=== PATIENT | male | born 1965 | race Caucasian/White ===

== ENCOUNTER 2018-04-30 17:29 | Inpatient (IN) | payer OTHER ==
[~2018-04-30] VITALS: Ht 167.6 cm; Wt 74.4 kg
[~2018-04-30 17:29] MED LIST: TRAZODONE100 MG PO
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
--- NOTE | 2018-04-30 19:21 | RADIOLOGY REPORT ---
EXAMINATION: XR KNEE, LEFT CLINICAL INFORMATION: Pain. COMPARISON: None TECHNIQUE: Four views of the left knee. FINDINGS: Bones are normal. No fracture or joint effusion. Alignment is anatomic. Joint spaces are well maintained. No abnormal soft tissue calcification. Mild prepatellar soft tissue swelling anteriorly IMPRESSION: No acute osseous finding. Mild prepatellar soft tissue swelling.
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
[2018-04-30 19:31] LABS: ABSOLUTE BASOPHIL COUNT 0.1 /CUMM (0.0-0.2); ABSOLUTE EOSINOPHIL COUNT 0.1 /CUMM (0.0-0.7); ABSOLUTE GRANULOCYTE CT 10.2 /CUMM (1.4-6.5); ABSOLUTE LYMPH COUNT 4.2 /CUMM (1.2-3.4); BASOPHIL % 0.5 % (0.0-2.0); EOSINOPHIL % 0.6 % (0-5); HEMATOCRIT 30.2 % (42-52); MEAN CORPUSCULAR HGB 32.8 PG (27.0-31.0); MEAN CORPUSCULAR HGB CONC 33.5 G/DL (33.0-37.0); MEAN CORPUSCULAR VOLUME 97.8 FL (80.0-94.0); MEAN PLATELET VOLUME 8.9 FL (7.4-10.4); PLATELET COUNT 315 /CUMM (130-400); RBC DISTRIBUTION WIDTH 15.5 % (11.5-14.5); RED BLOOD CELL CT 3.09 /CUMM (4.70-6.10); WHITE BLOOD CELL COUNT 15.6 /CUMM (4.8-10.8)
[2018-04-30 19:42] LABS: GRANULOCYTE % 65.2 % (42.2-75.2)
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
[2018-05-02 17:02] VITALS: BP 157/94
[2018-05-02 17:29] VITALS: BP 157/94
[2018-05-02 19:02] VITALS: BP 180/96
[2018-05-02] MEDS ORDERED: NEURONTIN300 M1 PO (21:15)
[2018-05-02] MEDS ORDERED: METOPROLOL TART25 M1 PO (21:17)
[2018-05-02] MEDS ORDERED: HYDROCHLOROTHIA25 M1 PO (21:18)
[2018-05-02] MEDS ORDERED: LISINOPRIL20 M1 PO (21:20)
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
[2018-05-02 23:02] VITALS: BP 153/84
[2018-05-03] VITALS (7 sets, daily range): BP systolic 139–171; BP diastolic 83–96
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
--- NOTE | 2018-05-04 02:47 | CP SOUTH PROGRESS NOTE PSYCH ---
Psych (Inpt) Progress Note Progress Note Vital Signs Date Time Temp Pulse B/P 05/04 0729 98.3 84 149/91 05/04 0613 84 160/92 05/03 2106 84 160/91 05/03 2105 84 161/91 05/03 1942 97.9 91 154/94 05/03 1934 97.9 91 154/94 05/03 1619 83 171/88 05/03 1616 83 171/88 Mental Status Examination The patient was alert and oriented to time, place, and person. He was limping because of significant left knee pain due to a significant fall with hematoma, the patient looked in physical pain on was limping, he also looked very tyson from traveling by bike from [place] up to [place], he was calm and cooperative and friendly, reduced psychomotor activity because of pain, no abnormal behaviors, normal speech, not pressured, not slurred, showed a good range of affect, denied feeling depressed, denied thoughts of suicide today, denied thoughts of violence or homicide towards his father or sister, denied hallucinations, denied feeling paranoid, there were no delusions during the interview, seemed to be coherent, there was no significant thought disorder, patient has partial insight, chronically impaired judgment. Patient seemed to have reasonable attention and concentration and able to process information, there was no evidence of short-term memory impairment during the interview Assessment: 52-year-old single white male was admitted because of vague suicidal statements as well as homicidal statements about his father and sister. Patient has shown significant improvement in his mood/irritability level and seemed to be at better terms with his dad who is expected to visit today Diagnoses: Unspecified depressive disorder Alcohol use disorder, severe Cannabis use disorder, moderate Stimulant use disorder, moderate Adjustment disorder with disturbance of emotions and conduct Treatment Plan: Increase/change Gabapentin to 600 mg TID Increase Metoprolol to 50 mg BID Change trazodone to regular schedule 50 mg QHS Continue oxycodone 10 mg every 4 hours as needed for pain and as well as homicidal statements about his father and sister DSM 5 Diagnosis(es): Unspecified depressive disorder Alcohol use disorder, severe Cannabis use disorder, moderate Stimulant use disorder, moderate Adjustment disorder with disturbance of emotions and conduct Treatment Plan: Inpatient psychiatric care with safety checks every 15 minutes and Continue detoxification protocol Increase oxycodone to 10 mg every 4 hours as needed for pain and Continue other medications unchanged Biopsychosocial assessment by social work, collateral information, and aftercare planning Group therapy and milieu therapy and activity therapy Nursing assessments, vital signs, and patient education and Psychiatrist to evaluate patient's mental status daily and monitor medications daily Continue as needed trazodone for sleep He also seems to be resilient and resourceful Impression/Plan Impression and Plan: 52-year-old single white male was admitted because of vague suicidal statements as well as homicidal statements about his father and sister - Include all active medical diagnosis that require tx DSM 5 Diagnosis(es): Unspecified depressive disorder Alcohol use disorder, severe Cannabis use disorder, moderate Stimulant use disorder, moderate Adjustment disorder with disturbance of emotions and conduct - Initial Tx Plan for Active Psych & Medical Conditions Treatment Plan: Inpatient psychiatric care with safety checks every 15 minutes and Continue detoxification protocol Increase oxycodone to 10 mg every 4 hours as needed for pain and Continue other medications unchanged Biopsychosocial assessment by social work, collateral information, and aftercare planning Group therapy and milieu therapy and activity therapy Nursing assessments, vital signs, and patient education and Psychiatrist to evaluate patient's mental status daily and monitor medications daily Continue as needed trazodone for sleep
[2018-05-04 06:13] VITALS: BP 160/92
[2018-05-04 07:29] VITALS: BP 149/91
[2018-05-04 08:04] VITALS: BP 149/91
[2018-05-04 12:20] VITALS: BP 145/94
[2018-05-04 15:52] VITALS: BP 157/96
--- NOTE | 2018-05-04 16:26 | SOCIAL WORKER PROG NOTE PSYCH ---
Social Work Progress Note Progress Note I met with Gustavo today to review his progress on the DSS W1E application. He made progress on it and went over a some missing information. This application will be mailed and the client was given a copy to follow up on in a couple days. I checked in with the patient to see how he was doing. He reported feeling a little better not coughing or experiencing the rib pain he had before. He still expressed pain in his leg and shoulder. The patient said that others do not believe the pain he reports having is real. He expressed enjoying his freedom and is not really into the correction lifestyle. He was concerned about [employer] insurance being active and how food stamps worked. The client was discussing his mothers passing and felt like something should have been passed onto him but believed that his sister lied. He spoke about when his father dies he will get the house along with other assets. The above information was documented by Sulaiman Dumont WIRING TECHNICIAN research program intern and signed by Katarina Reyes LCSW.
[2018-05-04 20:08] VITALS: BP 170/90
[2018-05-05 04:58] VITALS: BP 140/96
[2018-05-05 07:41] VITALS: BP 148/99
--- NOTE | 2018-05-05 08:20 | CP SOUTH PROGRESS NOTE PSYCH ---
Psych (Inpt) Progress Note Progress Note Treatment team (MENDEZ, RN, OTR/L & Activities Therapist, Psychiatrist) discussed the Pt.'s progress, treatment plan, and aftercare plans. Vital Signs Date Time Temp Pulse B/P 05/05 0741 97.6 80 148/99 05/05 0458 68 140/96 Mental Status Examination The patient was alert and oriented to time, place, and person. He looked in physical pain and was limping, calm and cooperative and friendly, reduced psychomotor activity because of pain, no abnormal behaviors, normal speech, not pressured, not slurred, showed a good range of affect, denied feeling depressed, denied thoughts of suicide today, denied thoughts of violence or homicide towards his father or sister, denied hallucinations, denied feeling paranoid, there were no delusions during the interview, seemed to be coherent, there was no significant thought disorder, seemed to have reasonable attention and concentration and able to process information, no evidence of short-term memory impairment during the interview Assessment: Gustavo is a 52-year-old Single White male was admitted because of vague suicidal statements as well as homicidal statements about his father and sister. Since his admission on 05/02/2018, patient has shown significant improvement in his mood/irritability level and seemed to be at better terms with his dad Diagnoses: Unspecified Depressive Disorder Alcohol Use Disorder, severe Cannabis Use Disorder, moderate Stimulant Use Disorder, moderate Adjustment Disorder with disturbance of emotions and conduct Treatment Plan Update: D/C Percocet Start Oxycodone 15 mg four times daily Increase Gabapentin to 900 mg TID Metoprolol 50 mg BID trazodone 50 mg QHS Increase/change Gabapentin to 600 mg TID Increase Metoprolol to 50 mg BID Change trazodone to regular schedule 50 mg QHS Continue oxycodone 10 mg every 4 hours as needed for pain and
--- NOTE | 2018-05-05 11:49 | SOCIAL WORKER PROG NOTE PSYCH ---
Social Work Progress Note Progress Note Completed [facility] concurrent review. Check [facility] web for next review date.
[2018-05-05 12:04] VITALS: BP 171/91; BP 171/97
[2018-05-05 14:32] VITALS: BP 152/90
--- NOTE | 2018-05-05 15:00 | SOCIAL WORKER PROG NOTE PSYCH ---
Social Work Progress Note Progress Note I Sulaiman Dumont (SNACK STEWARDESS paid intern) met with Gustavo to check in with him about his day. He reported feeling slightly better only mild discomfort in ribs no cough. He still is experiencing pain in his leg, and shoulder. He inquired about if he could get pain medication for those injuries and I let him know to talk with the nurses and psychiatrist. When asked about his mood he responded with " I have enough anxiety for five people." He did mention he let Victoria (medical student) know this when they met so he can possibly get some form of medication for this anxiety although he made it clear he does not want a psychotropic. When asked if he had any trouble sleeping on the unit he reported no problems and that the medications he takes here on the unit help him sleep. He expressed that he had a pleasant visit with his father last night. When asked about having a family meeting with his father Gustavo agreed. I had Gustavo sign a release to contact his father to set up the family meeting and a release for [facility] since that is the after care treatment he is looking to recieve. He mentioned to leave it on the recording that the call is in regard to him because dad screens calls. When asked if he feels sucidal he responded "no I am Confucianism well a bad one but still." He mentioned a positive experience at an all Black taoism with lot of people and how churches have strong wine. When asked about after care treatment he said that he has gotten clean and sober on his own in the past and he can do it again in the future. He mentioned the willpower in past to resist alcohol. He intends to go to [facility] for mental health treatment and services in [place] until at least August. In August he mentioned going to [facility] and seeking out mental health service he has used there before. A family meeting was scheduled with Gustavo's Father for Tuesday 05/08 at 2:30pm.
[2018-05-05 16:01] VITALS: BP 155/88
[2018-05-05 19:56] VITALS: BP 164/92
[2018-05-06 07:45] VITALS: BP 175/93
[2018-05-06 12:26] VITALS: BP 171/98
--- NOTE | 2018-05-06 14:55 | CP SOUTH PROGRESS NOTE PSYCH ---
Psych (Inpt) Progress Note Progress Note Include the following elements, when applicable: Involvement in the active treatment of the patient with behavioral observations of the patient and the patient's response to the treatment. Review of the ongoing treatment process in the context of the treatment plan. Indication of how multi-disciplinary staff members are carrying out the treatment plan. Plans for future interventions and recommendations for revision of the treatment plan. Liaison with other physicians/providers. Progress Note: Chart reviewed. Progress discussed with nursing staff. Interviewed patient this morning. Quite talkative, shared much of his story over past few weeks/months. Reports feeling depressed, denies suicidality, explained difficult relationship with his father. He asks for opiate tx for his knee which was denied. Vitals and labs reviewed. Findings are: persistent hypertension. No new labs. Mental status exam: Very tyson and tattooed man resting supine on hospital bed with left leg elevated. Bruising throughout left thigh. No abn movements. Speech was copious in amount with raspy quality. Mood "down", affect constrict though mildly labile and grandiose, TP was ruminative, content focused on injury and pain, denies SI/HI, reports vague AH of "I see shadows sometimes" cognition grossly intact, i/j fair Assessment and plan: Mood remains down without SI. Continued focus on pain. For persistent htn, will discuss with him tomorrow regarding addition of norvasc as described in hospitalist note. Otherwise, continue current management as per primary team.
[2018-05-06 15:54] VITALS: BP 156/95
[2018-05-06 19:53] VITALS: BP 152/97
--- NOTE | 2018-05-07 00:49 | Event Note ---
Event Note Event Note: I was asked to evaluate this patient's left knee swelling and abrasion. Patient had a recent fall with left knee abrasion and left thigh ecchymosis. He was evaluated on May 02 by hospitalist, and was advised daily dressing and wound consult. Tonight nurse notified that patient's entire leg was swollen and erythematous with diffuse left knee swelling. He has a h/o IV drug abuse. On my evaluation, patient reports reduced ROM of left knee and diffuse swelling. Patient has remained afebrile. Left thigh region has a diffuse ecchymotic patch, left knee has diffuse soft tissue swelling with possible underlying effusion. Diffuse erythema noted to left leg anteriorly with swelling, warmth and tenderness. Peripheral pulses well felt. Vitals stable. 1. Left knee abrasion with superimposed cellulitis, need to rule out DVT. - Stat CBC, BEP, CRP - Left knee Xray shows extensive soft tissue swelling and small knee joint effusion, no fracture. I was going to do a knee tap but since effusion is small, deferred the plan. - Blood cultures x 2, PO keflex initiated - LLE doppler to rule out DVT in AM - Ortho consult in AM - Area of erythema marked - We will continue to follow. Ortho consult pending, f/u blood cultures.
[2018-05-07 01:41] LABS: ABSOLUTE BASOPHIL COUNT 0.3 /CUMM (0.0-0.2); ABSOLUTE EOSINOPHIL COUNT 0.4 /CUMM (0.0-0.7); ABSOLUTE GRANULOCYTE CT 6.9 /CUMM (1.4-6.5); ABSOLUTE MONOCYTE COUNT 1.8 /CUMM (0.10-0.60); BASOPHIL % 1.8 % (0.0-2.0); EOSINOPHIL % 2.5 % (0-5); GRANULOCYTE % 48.1 % (42.2-75.2); MEAN CORPUSCULAR HGB 32.8 PG (27.0-31.0); MEAN CORPUSCULAR HGB CONC 33.5 G/DL (33.0-37.0); MEAN CORPUSCULAR VOLUME 98.1 FL (80.0-94.0); MEAN PLATELET VOLUME 9.3 FL (7.4-10.4); PLATELET COUNT 438 /CUMM (130-400); RBC DISTRIBUTION WIDTH 15.1 % (11.5-14.5); RED BLOOD CELL CT 3.57 /CUMM (4.70-6.10); WHITE BLOOD CELL COUNT 14.3 /CUMM (4.8-10.8)
--- NOTE | 2018-05-07 02:19 | RADIOLOGY REPORT ---
EXAMINATION: LEFT KNEE 3 VIEWS CLINICAL INFORMATION: Left knee pain and swelling. COMPARISON: April 30, 2018. TECHNIQUE: AP, lateral, oblique views of the left knee were obtained. FINDINGS: There are no fractures or dislocations. There is a small knee joint effusion. There is extensive soft tissue swelling about the medial aspect of the knee as well as anterior to the patella and patellar tendon. IMPRESSION: Extensive soft tissue swelling in small knee joint effusion. No demonstrable fracture.
[2018-05-07 07:52] VITALS: BP 140/98
--- NOTE | 2018-05-07 10:54 | CP SOUTH PROGRESS NOTE PSYCH ---
Psych (Inpt) Progress Note Progress Note Include the following elements, when applicable: Involvement in the active treatment of the patient with behavioral observations of the patient and the patient's response to the treatment. Review of the ongoing treatment process in the context of the treatment plan. Indication of how multi-disciplinary staff members are carrying out the treatment plan. Plans for future interventions and recommendations for revision of the treatment plan. Liaison with other physicians/providers. Progress Note: Chart reviewed. Progress discussed with nursing staff. Interviewed patient this morning. Again a bit talkative and gregarious, but clearly in pain from his left knee. His knee has become more painful with tracking redness down his left calf. He was seen by the hospitalist overnight who zuri blood and started on keflex for presumed cellulitis. An xray was obtained and u/s study ordered for today. He continues to report some depressed mood especially with regard to how his injuries will affect his ability to ride a bike. Denies SI/HI however, and denies AVH. Vitals and labs reviewed. Findings are: vitals wnl, afebrile. CBC: +leukocytosis though down since April 30. Hgb 10.1-->11.7. Chem: AG 9. Mental status exam: Very tyson and tattooed man ambulating around unit with limp. Again, brusing is noted on left thigh with tracking redness on left calf. His left foot and leg were warm and pulses were felt. Mood "I'm worried about what I 'm gonna do", affect constricted, mildly labile and expansive, TP was ruminative , content focused on injury and pain, denies SI/HI, reports vague AH of "I see shadows sometimes" cognition grossly intact, i/j fair Assessment and plan: #Knee: appreciate marketing graphics specialist input. Will f/u ordered blood cultures. Nursing to contact ortho for consult this morning. Follow up LLE doppers to r/o DVT. Continue to closely monitor vitals. Appreciate input re: management of pain. #Psych: mood remains reactively down. Continue psychotropics, defer to primary team for adjustment.
[2018-05-07 12:02] VITALS: BP 143/86
--- NOTE | 2018-05-07 12:42 | ULTRASOUND REPORT ---
EXAMINATION: US TRIPLEX LOWER EXTREMITY, LEFT CLINICAL INFORMATION: Left lower extremity pain, discoloration, swelling and inflammatory changes. COMPARISON: None TECHNIQUE: Color-flow triplex imaging with spectral analysis and compression Doppler were performed on the lower extremity. FINDINGS: Respiratory variation, normal compression and augmented flow are noted throughout the lower extremity. The visualized common femoral vein, proximal greater saphenous vein, femoral vein, profunda femoral vein, popliteal vein and midcalf peroneal and posterior tibial venous segments show no evidence of deep venous thrombosis. There is no Bullard's cyst. IMPRESSION: No evidence of deep venous thrombosis involving the lower extremity.
[2018-05-07 15:53] VITALS: BP 154/86
[2018-05-07 19:55] VITALS: BP 152/102
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
[2018-05-08 08:03] VITALS: BP 146/99
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
[2018-05-08 12:16] VITALS: BP 146/81
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
[2018-05-08 15:48] VITALS: BP 145/105; BP 146/87
--- NOTE | 2018-05-08 16:43 | RADIOLOGY REPORT ---
EXAMINATION: XR SHOULDER, RIGHT CLINICAL INFORMATION: Pain on movement limitation. Presumptive diagnosis of right shoulder fracture. COMPARISON: None TECHNIQUE: 5 views of the right shoulder. FINDINGS: There is a comminuted avulsion fracture of the greater tuberosity of the humerus with medial retraction of the bone fragments. There is inferior subluxation of the humeral head but the humeral head still remains located. The acromioclavicular joint is intact with mild nonbursal surface spurring, joint space narrowing and cystic changes seen. Included right ribs are intact and unremarkable. IMPRESSION: Comminuted displaced fracture of the greater tuberosity of the humeral head.
[2018-05-08 19:33] VITALS: BP 146/89
[2018-05-09 07:56] VITALS: BP 150/88
--- NOTE | 2018-05-09 09:00 | SOCIAL WORKER PROG NOTE PSYCH ---
Social Work Progress Note Progress Note Dr. Cristina and I met with Gustavo. Talked about his shoulder fracture and how his knee is doing. His medical issues remain complicated. Not knowing or having a stable place to stay to follow up on his medical issues puts him at risk. We talked about possible short term rehab to help heal. He was open to me starting that process. I explained it can take some time due to him being on the psych unit. Reports waking up early this morning and not being able to go back to sleep. Asked for an increase in Trazadone. Asked how his mood was with all of this going on? He reported being down/ sad. Upset that he can't function normally or ride his bike.
[2018-05-09 12:37] VITALS: BP 144/92
--- NOTE | 2018-05-09 13:59 | CP SOUTH PROGRESS NOTE PSYCH ---
Psych (Inpt) Progress Note Progress Note Treatment team (MENDEZ, RN, OTR/L & Activities Therapist, Psychiatrist) discussed the Pt.'s progress, treatment plan, and aftercare plans. Vital Signs Date Time Temp Pulse Resp B/P 05/09 1237 74 144/92 05/09 0758 17 150/88 05/09 0757 97.9 78 17 150/88 05/09 0756 97.9 78 150/88 05/08 2130 85 146/89 Mental Status Examination The patient was alert and oriented to time, place, and person. He was seen by orthopedics, in physical pain, limping, calm, cooperative, friendly, poor boundaries, talkative, not pressured, not slurred, good range of affect, denied feeling depressed, denied thoughts of suicide wishes his father's but denied thoughts of violence or homicide towards his father or sister, denied hallucinations, denied feeling paranoid, there were no delusions during the interview, tangential and circumstantial but coherent, reasonable attention and concentration and able to process information, no evidence of short-term memory impairment Assessment: Gustavo is a 52-year-old Single White Male was admitted on 05/02/2018 because of vague suicidal statements as well as homicidal statements about his father and sister. Since his admission on 05/02/2018, patient has shown significant improvement in his mood/irritability Diagnoses: Unspecified Depressive Disorder Alcohol Use Disorder, severe Cannabis Use Disorder, moderate Stimulant Use Disorder, moderate Adjustment Disorder with disturbance of emotions and conduct Treatment Plan Update: PT consult, Ortho said no furthr interventions Increase trazodone to 100 mg QHS Duloxetine 30 mg daily Oxycodone 20 mg Q 6Hours Gabapentin 900 mg TID Metoprolol 50 mg BID
--- NOTE | 2018-05-09 14:29 | SOCIAL WORKER PROG NOTE PSYCH ---
Social Work Progress Note Progress Note ANGELA CESAR [id number] 1965 ANGELA CESAR [id number] Pended Authorization # Client Authorization # Type of Request [id number] CONCURRENT Date of Admission/ Start of Services Requested From Submission Date 05/02/2018 05/09/2018 05/09/2018
[2018-05-09 15:46] VITALS: BP 142/90
[2018-05-09 19:49] VITALS: BP 159/93
[2018-05-10 07:33] VITALS: BP 152/93
--- NOTE | 2018-05-10 12:05 | SOCIAL WORKER PROG NOTE PSYCH ---
Social Work Progress Note Progress Note Started the [facility] application this morning. Spoke with Gustavo about how the process takes some time. He is interested in going to a rehab in the [place] area if accepted. He talked about how he is doing medically. Reports pain in his right shoulder. Swelling is going down a bit on his left knee/ leg. He is still wearing a bandage due to oozing. Talked about the negative experience he had with OT staff yesterday. He reported that he is not going to this person's groups anymore, because he felt that she wasn't listening to him and not wanting to spend time with him. He felt disrespected. Encouraged him not to spread negativity on the unit about his feelings and start to have everyone boycotting group. He listened to what was said and seemed to be respectful. He said he tries to go to groups here and does feel they are beneficial.
[2018-05-10 12:37] VITALS: BP 132/82
[2018-05-10 15:45] VITALS: BP 151/97
--- NOTE | 2018-05-10 16:20 | CP SOUTH PROGRESS NOTE PSYCH ---
Psych (Inpt) Progress Note Progress Note Treatment team (MENDEZ, RN, OTR/L & Activities Therapist, Psychiatrist) discussed the Pt.'s progress, treatment plan, and aftercare plans. Vital Signs Date Time Temp Pulse Resp B/P B/P Pulse O2 FiO2 05/10 1545 77 151/97 05/10 1237 74 132/82 05/10 0744 97.7 78 17 152/93 05/10 0744 97.7 78 17 152/93 Mental Status Examination The patient was alert and oriented to time, place, and person. He was talkative with bright affect. He seemed to be in physical pain/limping calm, cooperative, friendly, denied feeling depressed, denied thoughts of suicide denied thoughts of violence or homicide towards his father, sister, or anyone else denied hallucinations, denied feeling paranoid, there were no delusions during the interview, tangential and circumstantial but coherent, reasonable attention and concentration and able to process information, no evidence of short-term memory impairment Assessment: Gustavo Soto is a 52-year-old Single White Male was admitted on 05/02/2018 because of vague suicidal statements as well as homicidal statements about his father and sister. Since his admission on 05/02/2018, patient has shown significant improvement in his mood/irritability He has a healing fracture of Rt. Humeral Head and Left Knee Hematoma Diagnoses: Unspecified Depressive Disorder Alcohol Use Disorder, severe Cannabis Use Disorder, moderate Stimulant Use Disorder, moderate Adjustment Disorder with disturbance of emotions and conduct Treatment Plan Update: Continue trazodone to 100 mg QHS Duloxetine 30 mg daily Oxycodone 20 mg Q 6Hours Gabapentin 900 mg TID Metoprolol 50 mg BID DICTATED BY: Ibeth MCCOY,Manjit
[2018-05-10 20:16] VITALS: BP 161/96
[2018-05-11 08:02] VITALS: BP 158/89
--- NOTE | 2018-05-11 08:22 | CP SOUTH PROGRESS NOTE PSYCH ---
Psych (Inpt) Progress Note Progress Note Treatment team (MENDEZ, RN, OTR/L & Activities Therapist, Psychiatrist) discussed the Pt.'s progress, treatment plan, and aftercare plans. Mental Status Examination The patient was alert and oriented to time, place, and person. He was talkative with bright affect. He seemed to be in physical pain/limping calm, cooperative, friendly, denied feeling depressed, denied thoughts of suicide denied thoughts of violence or homicide towards his father, sister, or anyone else denied hallucinations, denied feeling paranoid, there were no delusions during the interview, tangential and circumstantial but coherent, reasonable attention and concentration and able to process information, no evidence of short-term memory impairment Assessment: Gustavo Soto is a 52-year-old Single White Male was admitted on 05/02/2018 because of vague suicidal statements as well as homicidal statements about his father and sister. Since his admission on 05/02/2018, patient has shown significant improvement in his mood/irritability He has a healing fracture of Rt. Humeral Head and Left Knee Hematoma Diagnoses: Unspecified Depressive Disorder Alcohol Use Disorder, severe Cannabis Use Disorder, moderate Stimulant Use Disorder, moderate Adjustment Disorder with disturbance of emotions and conduct Treatment Plan Update: Increase Duloxetine to 30 mg daily Continue trazodone to 100 mg QHS Oxycodone 20 mg Q 6Hours Gabapentin 900 mg TID Metoprolol 50 mg BID Gabapentin 900 mg TID Metoprolol 50 mg BID
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
--- NOTE | 2018-05-11 10:57 | SOCIAL WORKER PROG NOTE PSYCH ---
Social Work Progress Note Progress Note [facility] application was submitted online. MAR and doctor's attestation was faxed to [facility].
[2018-05-11 12:18] VITALS: BP 147/80
[2018-05-11 16:27] VITALS: BP 166/98
[2018-05-11 20:24] VITALS: BP 150/82
[2018-05-12 07:33] VITALS: BP 166/104
--- NOTE | 2018-05-12 10:56 | CP SOUTH PROGRESS NOTE PSYCH ---
Psych (Inpt) Progress Note Progress Note Treatment team (MENDEZ, RN, OTR/L & Activities Therapist, Psychiatrist) discussed the Pt.'s progress, treatment plan, and aftercare plans. Vital Signs: Date Time Temp Pulse Resp B/P 05/12 0852 97.0 78 17 166/104 05/12 0851 97.0 78 17 166/104 Mental Status Examination: The patient was alert and oriented to time, place, and person. He was talkative with bright affect. He seemed to be in physical pain/limping calm, cooperative, friendly, denied feeling depressed, denied thoughts of suicide denied thoughts of violence or homicide towards his father, sister, or anyone else denied hallucinations, denied feeling paranoid, there were no delusions during the interview, tangential and circumstantial but coherent, reasonable attention and concentration and able to process information, no evidence of short-term memory impairment Assessment: Gustavo Soto is a 52-year-old Single White Male was admitted on 05/02/2018 because of vague suicidal statements as well as homicidal statements about his father and sister. Since his admission on 05/02/2018, patient has shown significant improvement in his mood/irritability He has a healing fracture of Rt. Humeral Head and Left Knee Hematoma Diagnoses: Unspecified Depressive Disorder Alcohol Use Disorder, severe Cannabis Use Disorder, moderate Stimulant Use Disorder, moderate Adjustment Disorder with disturbance of emotions and conduct Treatment Plan Update: Continue Duloxetine 30 mg daily Continue trazodone to 100 mg QHS Oxycodone 20 mg Q 6Hours Gabapentin 900 mg TID Metoprolol 50 mg BID Metoprolol 50 mg BID
[2018-05-12 12:14] VITALS: BP 158/91
--- NOTE | 2018-05-12 13:38 | SOCIAL WORKER PROG NOTE PSYCH ---
Social Work Progress Note Progress Note I Sulaiman Dumont ([facility] [place] student met with Gustavo to see how he was doing today. He informed me that his visit with his father went fine last night but his dad did get angry about the generator at the house. Gustavo expressed that he wants to go to a nursing facility in the [place] so that his dad can visit him there. When asked about his feelings around his plan when leaving the hospital he expressed physical therapy would be helpful and would be happy to receive it from nursing facility. He expressed that when his time is done at the nursing facility he has no problem going back to being homeless and living on the streets. He knows people at the police stations and has no problem going there if he needed to. He still reports having a good amount of anxiety but not as depressed today. He also described how he eventually will plan to work for his friend [employer]. He mentioned wanting to also connect with Emily a friend he had since eight grade and dated in the past. He reports some shoulder pain. He told me that he did not have such a nice experience last night a AA meeting because he felt that the copyholder intentional did not let him speak and avoided giving him the number. This frustrated Gustavo and he is looking into other AA meeting but did not like the copyholder. He talked about paying his fine to [place] over six months. The above information was written by Sulaiman Dumont ([facility] [place] real estate internship) and signed by Katarina Reyes LCSW
[2018-05-12 15:43] VITALS: BP 162/94
--- NOTE | 2018-05-12 16:00 | SOCIAL WORKER PROG NOTE PSYCH ---
Social Work Progress Note Progress Note Additional clinical documentation was faxed to [facility] this morning.
[2018-05-12 19:54] VITALS: BP 174/110
[2018-05-12 23:49] VITALS: BP 148/97
[2018-05-13 07:39] VITALS: BP 126/78
--- NOTE | 2018-05-13 09:04 | CP SOUTH PROGRESS NOTE PSYCH ---
Psych (Inpt) Progress Note Progress Note Treatment team (MENDEZ, RN, OTR/L & Activities Therapist, Psychiatrist) discussed the Pt.'s progress, treatment plan, and aftercare plans. Vital Signs: Date Time Temp Pulse Resp B/P B/P 05/13 0844 69 126/78 05/13 0844 69 126/78 05/13 0739 97.7 69 126/78 05/12 2349 77 148/97 05/12 2031 84 174/110 Mental Status Examination: The patient was alert and oriented to time, place, and person. He was talkative with bright affect. cooperative, friendly, denied feeling depressed, denied thoughts of suicide, denied thoughts of violence or homicide towards his father, sister, or anyone else Pt. denied hallucinations, denied feeling paranoid, and there were no delusions during the interview. coherent (with the occasional tangent or overdetailed/circumstantial thoughts) no evidence of short-term memory impairment Assessment: Gustavo Soto is a 52-year-old Single White Male who was admitted to the inpatient psychiatric unit at [facility] on 05/02/2018 because of vague suicidal statements as well as homicidal statements about his father and sister. Since his admission on 05/02/2018, Gustavo has shown significant improvement in his mood. He has a healing fracture of Rt. Humeral Head and Left Knee Hematoma Diagnoses (Updated): Unspecified Depressive Disorder Alcohol Use Disorder, Severe Cannabis Use Disorder, Moderate Stimulant Use Disorder, moderate Treatment Plan Update: Increase Duloxetine to 60 mg QAM Continue trazodone 100 mg QHS Oxycodone 20 mg Q 6Hours Gabapentin 900 mg TID Metoprolol 50 mg BID Stimulant Use Disorder, moderate Adjustment Disorder with disturbance of emotions and conduct Treatment Plan Update: Continue Duloxetine 30 mg daily Continue trazodone to 100 mg QHS Oxycodone 20 mg Q 6Hours Gabapentin 900 mg TID Metoprolol 50 mg BID
[2018-05-13 12:17] VITALS: BP 158/96
[2018-05-13 15:45] VITALS: BP 134/96
[2018-05-13 19:45] VITALS: BP 164/98
[2018-05-14 07:39] VITALS: BP 146/92
[2018-05-14 11:55] VITALS: BP 150/85
--- NOTE | 2018-05-14 12:08 | CP SOUTH PROGRESS NOTE PSYCH ---
Psych (Inpt) Progress Note Progress Note Mental Status Examination: The patient was alert and oriented to time, place, and person. He was talkative but coherent. He denied feeling depressed and he showed bright affect. He was cooperative, friendly, denied thoughts of suicide, denied thoughts of violence or homicide towards his father, sister, or anyone else Pt. denied hallucinations, denied feeling paranoid, and there were no delusions during the interview. coherent (with the occasional tangent or overdetailed/circumstantial thoughts) no evidence of short-term memory impairment Assessment: Gustavo Soto is a 52-year-old Single White Male who was admitted to the inpatient psychiatric unit at [facility] on 05/02/2018 because of vague suicidal statements as well as homicidal statements about his father and sister. Since his admission on 05/02/2018, Gustavo has shown significant improvement in his mood. He has a healing fracture of Rt. Humeral Head and Hematoma above Left Knee Today it seems that the hematoma has drained spontaneously and is leaking from a break in the skin just over the patella Diagnoses (Updated): Unspecified Depressive Disorder Alcohol Use Disorder, Severe Cannabis Use Disorder, Moderate Stimulant Use Disorder, moderate Treatment Plan Update: Duloxetine 60 mg QAM Continue trazodone 100 mg QHS Oxycodone 20 mg Q 6Hours Gabapentin 900 mg TID Metoprolol 50 mg BID
[2018-05-14 15:23] VITALS: BP 160/102
[2018-05-14 15:55] VITALS: BP 160/96
[2018-05-14 19:43] VITALS: BP 162/102
[2018-05-15 07:40] VITALS: BP 162/98
[2018-05-15 08:10] LABS: ABSOLUTE BASOPHIL COUNT 0.1 /CUMM (0.0-0.2); ABSOLUTE EOSINOPHIL COUNT 0.8 /CUMM (0.0-0.7); ABSOLUTE GRANULOCYTE CT 7.2 /CUMM (1.4-6.5); BASOPHIL % 0.7 % (0.0-2.0); EOSINOPHIL % 4.8 % (0-5); GRANULOCYTE % 42.3 % (42.2-75.2); HEMATOCRIT 39.6 % (42-52); MEAN CORPUSCULAR HGB 32.1 PG (27.0-31.0); MEAN CORPUSCULAR HGB CONC 32.9 G/DL (33.0-37.0); MEAN CORPUSCULAR VOLUME 97.4 FL (80.0-94.0); MEAN PLATELET VOLUME 9.2 FL (7.4-10.4); PLATELET COUNT 541 /CUMM (130-400); RBC DISTRIBUTION WIDTH 14.2 % (11.5-14.5); RED BLOOD CELL CT 4.07 /CUMM (4.70-6.10); WHITE BLOOD CELL COUNT 17.1 /CUMM (4.8-10.8)
--- NOTE | 2018-05-15 09:09 | CP SOUTH PROGRESS NOTE PSYCH ---
Psych (Inpt) Progress Note Progress Note Mental Status Examination: alert and oriented to time, place, and person. He was talkative but coherent. He denied feeling depressed and he showed bright affect, cooperative, friendly, denied thoughts of suicide, denied thoughts of violence or homicide towards his father, sister, or anyone else, denied hallucinations, denied feeling paranoid, and there were no delusions during the interview, coherent (with the occasional tangent or overdetailed/circumstantial thoughts), no evidence of short-term memory impairment Assessment: Gustavo Soto is a 52-year-old Single White Male who was admitted to the inpatient psychiatric unit at [facility] on 05/02/2018 because of vague suicidal statements as well as homicidal statements about his father and sister. Since his admission on 05/02/2018, Gustavo has shown significant improvement in his mood. He has a healing fracture of Rt. Humeral Head and Hematoma above Left Knee Today it seems that the hematoma has drained spontaneously and is leaking from a break in the skin just over the patella Diagnoses (Updated): Unspecified Depressive Disorder Alcohol Use Disorder, Severe Cannabis Use Disorder, Moderate Stimulant Use Disorder, moderate Treatment Plan Update: Duloxetine 60 mg QAM Continue trazodone 100 mg QHS reduce Oxycodone to 15 mg Q 6Hours Gabapentin 900 mg TID Metoprolol 50 mg BID
[2018-05-15 12:16] VITALS: BP 160/98
--- NOTE | 2018-05-15 12:42 | SOCIAL WORKER PROG NOTE PSYCH ---
Social Work Progress Note Progress Note Gustavo reported having a good weekend. Spoke with Dad on Tuesday. Conversation was okay. Gustavo reported having some irritability towards another peer on the unit, but was able to keep things in control. He is walking on the unit without a walker today. Reported that he has an orthopedic consult today and the library specialist is supposed to see him. Reports sleeping okay, but gets up 2-3x's a night to urinate. He reports this is pretty normal for him. Denies cravings to drink alcohol. I mentioned possibly trying some medication to assist with any cravings, but he didn't seem to feel that was necessary. Has a talkative personality. Enjoys spending time talking with people. Faxed [facility] a letter from Dr. Cristina speaking to Gustavo's level of risk at this point.
--- NOTE | 2018-05-15 15:12 | SOCIAL WORKER PROG NOTE PSYCH ---
Social Work Progress Note Progress Note The services requested require additional review. You will be contacted regarding the status of this request if further information is needed. An authorization decision will be made within the required timeframes and details of that decision may be found under the member's authorization history. Member Name Member ID Member Subscriber Name Subscriber ID ANGELA CESAR [id number] ANGELA SEVILLAANO [id number] Pended Authorization # Client Authorization # Type of Request [id number] CONCURRENT Date of Admission/ Start of Services Requested From Submission Date 05/02/2018 05/15/2018 05/15/2018 Level of Service Type of Service Level of Care Type of Care INPATIENT/HLOC [facility] Reason Code P76 Provider Name & Address Provider ID Provider Alternate ID NPI # for Authorization MAKAYLA PETERSON [id number] [address] [place] [id number]
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
[2018-05-15 16:07] VITALS: BP 135/90
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
[2018-05-15 19:45] VITALS: BP 180/110
[2018-05-15 21:54] VITALS: BP 164/92
--- NOTE | 2018-05-16 07:29 | CP SOUTH PROGRESS NOTE PSYCH ---
Psych (Inpt) Progress Note Progress Note Laboratory Tests Laboratory Tests 05/16 05/15 CBC w Diff NO MAN DIFF REQ WBC (4.8 - 10.8 /CUMM) 14.8 H RBC (4.70 - 6.10 /CUMM) 4.01 L Hgb (14.0 - 18.0 G/DL) 12.7 L Hct (42 - 52 %) 38.8 L MCV (80.0 - 94.0 FL) 96.8 H MCH (27.0 - 31.0 PG) 31.6 H MCHC (33.0 - 37.0 G/DL) 32.7 L RDW (11.5 - 14.5 %) 14.5 Plt Count (130 - 400 /CUMM) 502 H MPV (7.4 - 10.4 FL) 8.9 Gran % (42.2 - 75.2 %) 44.7 Lymphocytes % (20.5 - 51.1 %) 38.1 Monocytes % (1.7 - 9.3 %) 12.1 H Eosinophils % (0 - 5 %) 4.6 Basophils % (0.0 - 2.0 %) 0.5 Absolute Granulocytes (1.4 - 6.5 /CUMM) 6.6 H Absolute Lymphocytes (1.2 - 3.4 /CUMM) 5.6 H Absolute Monocytes (0.10 - 0.60 /CUMM) 1.8 H Absolute Eosinophils (0.0 - 0.7 /CUMM) 0.7 Absolute Basophils (0.0 - 0.2 /CUMM) 0.1 Vital Signs Date Time Temp Pulse Resp B/P 05/15 2154 78 164/92 05/15 1950 98.5 80 17 180/110 05/15 1945 98.5 80 180/110 05/15 1607 77 135/90 05/15 1216 68 160/98 05/15 0750 97.6 71 17 162/98 05/15 0749 97.6 71 17 Mental Status Examination: alert and oriented to time + place + person, talkative but coherent, denied feeling depressed and he showed bright affect, cooperative, friendly, denied thoughts of suicide, denied thoughts of violence or homicide towards his father, sister, or anyone else, denied hallucinations, denied feeling paranoid, and there were no delusions during the interview, an occasional tangent or overdetailed/circumstantial thoughts, no evidence of short-term memory impairment Assessment: Gustavo Soto is a 52-year-old Single White Male who was admitted to the Inpatient psychiatric unit at [facility] on 05/02/2018 because of vague suicidal statements as well as wishing on his father and sister. Since his admission on 05/02/2018, Gustavo has shown significant improvement in his mood and has made up with his father. He no longer wishes his father's He has a healing fracture of Rt. Humeral Head and a significant hematoma above Left Knee which has been draining since Tuesday evening 05/12/2018 and showing gradual resolusion Diagnoses (Updated 05/16/2018): Unspecified Depressive Disorder Alcohol Use Disorder, Severe Cannabis Use Disorder, Moderate Stimulant Use Disorder, Moderate Healing fracture of Rt. Humeral head Left knee hematoma and hemarthrosis Treatment Plan Update: Duloxetine 60 mg QAM Continue trazodone 100 mg QHS continue Oxycodone 15 mg Q 6Hours Gabapentin 900 mg TID Metoprolol 50 mg BID
[2018-05-16 07:45] LABS: ABSOLUTE BASOPHIL COUNT 0.1 /CUMM (0.0-0.2); ABSOLUTE EOSINOPHIL COUNT 0.7 /CUMM (0.0-0.7); ABSOLUTE GRANULOCYTE CT 6.6 /CUMM (1.4-6.5); ABSOLUTE LYMPH COUNT 5.6 /CUMM (1.2-3.4); ABSOLUTE MONOCYTE COUNT 1.8 /CUMM (0.10-0.60); BASOPHIL % 0.5 % (0.0-2.0); EOSINOPHIL % 4.6 % (0-5); GRANULOCYTE % 44.7 % (42.2-75.2); HEMATOCRIT 38.8 % (42-52); MEAN CORPUSCULAR HGB 31.6 PG (27.0-31.0); MEAN CORPUSCULAR HGB CONC 32.7 G/DL (33.0-37.0); MEAN CORPUSCULAR VOLUME 96.8 FL (80.0-94.0); MEAN PLATELET VOLUME 8.9 FL (7.4-10.4); PLATELET COUNT 502 /CUMM (130-400); RBC DISTRIBUTION WIDTH 14.5 % (11.5-14.5); RED BLOOD CELL CT 4.01 /CUMM (4.70-6.10); WHITE BLOOD CELL COUNT 14.8 /CUMM (4.8-10.8)
[2018-05-16 08:38] VITALS: BP 156/97
[2018-05-16 12:00] VITALS: BP 148/94
--- NOTE | 2018-05-16 12:21 | PN- Att Addend ---
Attending Addendum Attending Brief Note S: The patient is s/p drainage of left knee hematoma (pre-patellar) by ortho PA yesterday. Had copious gelatinous material drained (no purulence as per pa note) . O: VS: Vital Signs Date Time Temp Pulse Resp B/P B/P Pulse O2 O2 Flow FiO2 Mean Ox Delivery Rate 05/16 2124 162/98 05/16 1955 96.8 73 170/110 05/16 1539 63 157/95 05/16 1200 61 148/94 05/16 0852 72 156/97 05/16 0838 98.3 72 156/97 05/15 2154 78 164/92 Ext: left knee dressing with some sanguinous material. There is pre-patellar open wound. Culture done of sanguinous drainage. FROM of knee at present. Labs: Laboratory Tests 05/16/18 0644: CBC w Diff NO MAN DIFF REQ, RBC 4.01 L, MCV 96.8 H, MCH 31.6 H, MCHC 32.7 L, RDW 14.5, MPV 8.9, Gran % 44.7, Lymphocytes % 38.1, Monocytes % 12.1 H, Eosinophils % 4.6, Basophils % 0.5, Absolute Granulocytes 6.6 H, Absolute Lymphocytes 5.6 H, Absolute Monocytes 1.8 H, Absolute Eosinophils 0.7, Absolute Basophils 0.1 05/15/18 1600: Fluid WBC Cancelled, Fld Total RBCs Counted Cancelled 05/15/18 1000: Fluid Glucose Cancelled 05/15/18 0545: CBC w Diff NO MAN DIFF REQ, RBC 4.07 L, MCV 97.4 H, MCH 32.1 H, MCHC 32.9 L, RDW 14.2, MPV 9.2, Gran % 42.3, Lymphocytes % 40.7, Monocytes % 11.5 H, Eosinophils % 4.8, Basophils % 0.7, Absolute Granulocytes 7.2 H, Absolute Lymphocytes 7.0 H, Absolute Monocytes 2.0 H, Absolute Eosinophils 0.8, Absolute Basophils 0.1 Impression/Plan: #Left Knee Hematoma- drained by PA as above. No obvious infection. Culture done. WBC decreased. Plan: Patient had been placed on Augmentin for several days. Await wound care nursing consult regarding dressing. #HTN- BP noted to be elevated on chart review. Dose of Metoprolol had been increased. Plan: Continue Metoprolol/HCTZ - will increase Lisinopril to 40 mg daily in morning.
[2018-05-16 15:39] VITALS: BP 157/95
--- NOTE | 2018-05-16 15:40 | SOCIAL WORKER PROG NOTE PSYCH ---
Social Work Progress Note Progress Note Spoke with Angela at [facility]. She said that the case has been assigned to a Katty Lewis. She should be coming out to see Gustavo in the next couple of days. She is supposed to turn in her documentation by 05/18 at noon. At that point [facility] has until 05/22 to approve. Informed Gustavo of this information. He is hoping if approved to go to a facility in the [place]. Preferrably [facility] in [place]. I told him that I was most likely going to cancel his care intake due to him remaining inpatient. The intake was supposed to be for this Tuesday. Mood was pleasant. Smiling. Social with peers. Attending groups. Expecting a visit tonight with his long time friend Alon. He has been following up on his [facility] SNAP application. He said that he has further documentation that he will need to provide to them in order for them to give him benefits. He said that he needs to show that his [place] benefits have been terminated.
[2018-05-16 19:55] VITALS: BP 170/110
[2018-05-16 21:24] VITALS: BP 162/98
[2018-05-17] VITALS (7 sets, daily range): BP systolic 150–184; BP diastolic 89–102
--- NOTE | 2018-05-17 09:03 | SOCIAL WORKER PROG NOTE PSYCH ---
Social Work Progress Note Progress Note Level 1 has been approved, waiting for on-site Level II review/approval or not. - outcome TBD. TC to Angela Alvarez , left a voicemail to confirm note in [employer] website. She returned my call and stated Katty Martinez will come out tonight 05/17 between 6-6:30pm (notified nursing) to do a Level II with Gustavo. Then the outcome of the evaluation (if approved or not) will be in [employer] Website (see access on Katarina's desk -ID/password - CHECK STATUS 05/18) Outcome should be there no later than Mon. 05/22, per Angela/Antonio. Met with Gustavo, he was pleasant and cooperative. He made it clear he wants to be in the [place] area for a SNF. Explained to Gustavo that we need to widen our bed search - and know psychiatric friendly SNF;s. He agreed and signed GONZALO's for the [facility] SN[facility]'s: Need to continue to FAX clinical then contact Admissions. Inform them Level II outcome is in process, PT has been approved for Level I. [facility] fX [phone], [phone] [place] FX# ?? PH#[phone] [facility] FX [phone], PH#[phone] [facility] FX [phone] [facility] [phone], PH#[phone] [facility] FX#[phone], PH#[phone] He denied SI/HI, no AH/VH. He stated he wants to be able to ride his bike around the [place] area. He was talkative, and interested in where the nursing homes were located. He is very appreciative of help. He was visible in the milleu, social with peers and staff and attended groups. His appetite is good, sleep good. He spoke abouit his Father - how he visits him here on [facility] but won't let him stay with him, or give him money. Discussed staying sober and clean off drugs. Gustavo stated he wants to stay sober.
--- NOTE | 2018-05-17 12:29 | CP SOUTH PROGRESS NOTE PSYCH ---
Psych (Inpt) Progress Note Progress Note Mental Status Examination: Gustavo was alert and oriented to time + place + person, talkative but coherent, denied feeling depressed and he showed bright affect, cooperative, friendly, denied thoughts of suicide, denied thoughts of violence or homicide towards his father, sister, or anyone else, denied hallucinations, denied feeling paranoid, and there were no delusions during the interview, no evidence of short-term memory impairment Assessment: Gustavo Soto is a 52-year-old Single White Male who was admitted to the Inpatient psychiatric unit at [facility] on 05/02/2018 because of vague suicidal statements as well as wishing on his father and sister. Since his admission on 05/02/2018, Gustavo has shown significant improvement in his mood and has made up with his father. He no longer wishes his father's He has a healing fracture of Rt. Humeral Head and a significant hematoma above Left Knee which has been draining since Tuesday evening 05/12/2018 and showing gradual resolusion Diagnoses (Updated 05/16/2018): Unspecified Depressive Disorder Alcohol Use Disorder, Severe Cannabis Use Disorder, Moderate Stimulant Use Disorder, Moderate Healing fracture of Rt. Humeral head Left knee hematoma and hemarthrosis Treatment Plan Update: Increase metoprolol to 100 mg twice daily Continue other medications unchanged Duloxetine 60 mg QAM Continue trazodone 100 mg QHS continue Oxycodone 15 mg Q 6Hours Gabapentin 900 mg TID
--- NOTE | 2018-05-17 20:45 | SOCIAL WORKER PROG NOTE PSYCH ---
Social Work Progress Note Progress Note Faxed clinical to [facility]. Waiting on Fax confirmation.
[2018-05-18] VITALS (7 sets, daily range): BP systolic 141–184; BP diastolic 84–104
--- NOTE | 2018-05-18 10:34 | SOCIAL WORKER PROG NOTE PSYCH ---
Social Work Progress Note Progress Note ANGELA CESAR [id number] 1965 ANGELA CESAR [id number] Pended Authorization # Client Authorization # Type of Request [id number] CONCURRENT Date of Admission/ Start of Services Requested From Submission Date 05/02/2018 05/18/2018 05/18/2018 Level of Service Type of Service Level of Care Type of Care INPATIENT/OC MENTAL HEALTH INPATIENT INPATIENT [facility]OSP[facility] - INPATIENT HOSPITAL
--- NOTE | 2018-05-18 10:51 | SOCIAL WORKER PROG NOTE PSYCH ---
Social Work Progress Note Progress Note I Sulaiman Dumont met with Gustavo and informed him that we would hear back from [facility] by May 22 the latest which told him as well. He reports that the meeting went great with [facility] and he was just asked several simple questions. He also stated he had a good thirty minute visit with Dad. He reports being in good mood with some shoulder pain. He mentioned not being able to shower due to knee bandage without a bag on it. Explored ways this pain has had a negative impact on his independence, and how he needs to comply with recovery so he get back to functioning. No word on Level II acceptance yet
--- NOTE | 2018-05-18 15:38 | CP SOUTH PROGRESS NOTE PSYCH ---
Psych (Inpt) Progress Note Progress Note Vital Signs Date Time Temp Pulse Resp B/P 05/18 1154 63 141/84 05/18 0832 97.8 64 17 143/90 05/18 0740 97.8 64 143/90 05/18 0705 92 178/100 05/18 0639 97.9 92 178/100 05/17 2202 68 150/89 05/17 2003 77 184/102 Mental Status Examination: Gustavo continues to have elevated blood pressure on occasion. He was alert and oriented to time + place + person talkative but coherent, denied feeling depressed and he showed bright affect, cooperative, friendly, denied thoughts of suicide, denied thoughts of violence or homicide towards his father, sister, or anyone else, denied hallucinations, denied feeling paranoid, and there were no delusions during the interview Assessment: Gustavo Soto is a 52-year-old Single White Male who was admitted to the Inpatient psychiatric unit at [facility] on 05/02/2018 because of vague suicidal statements as well as wishing on his father and sister. Since his admission on 05/02/2018, Gustavo has shown significant improvement in his mood and has made up with his father. He no longer wishes his father's He has a healing fracture of Rt. Humeral Head and a significant hematoma above Left Knee which has been draining since Tuesday evening 05/12/2018 and showing gradual resolusion Diagnoses (Updated 05/16/2018): Unspecified Depressive Disorder Alcohol Use Disorder, Severe Cannabis Use Disorder, Moderate Stimulant Use Disorder, Moderate Healing fracture of Rt. Humeral head Left knee hematoma and hemarthrosis Treatment Plan Update: Increase lisinopril to 60 mg daily Continue other medications unchanged Gabapentin 900 mg TID
[2018-05-19 07:52] VITALS: BP 158/85
--- NOTE | 2018-05-19 10:25 | SOCIAL WORKER PROG NOTE PSYCH ---
Social Work Progress Note Progress Note The following was written by Sulaiman Dumont, LUBRICATING ENGINE[employer] student: I Sulaiman Dumont met with Gustavo this morning to check in with him. He reported being tired, as he appeared, due to waking up at 430am to use the bathroom and not being able to go back to sleep. When asked if any thoughts were keeping him up he said no. He visited with his dad last night who brought him mail that had approval for SNAP and [employer]. The patient said he called for new [employer] card. He reports he is happy with his discharge plan to go to a nursing facility. He reports being in good mood about has general anxiety about life. Gustavo presented as alert and engaging in this conversation.
[2018-05-19 12:02] VITALS: BP 120/98
--- NOTE | 2018-05-19 12:33 | CP SOUTH PROGRESS NOTE PSYCH ---
Psych (Inpt) Progress Note Progress Note Vital Signs Date Time Temp Pulse Resp B/P B/P Pulse O2 FiO2 05/19 1202 64 120/98 05/19 0930 97.5 66 17 158/85 05/19 0930 97.5 66 17 158/85 05/19 0752 97.5 66 158/85 05/186 158/88 Mental Status Examination: Gustavo was alert and oriented to time + place + person He is talkative but coherent, denied feeling depressed and he showed bright affect, cooperative, friendly, denied thoughts of suicide, denied thoughts of violence or homicide towards his father, sister, or anyone else, denied hallucinations, denied feeling paranoid, and there were no delusions during the interview Assessment: Gustavo Soto is a 52-year-old Single White Male who was admitted to the Inpatient psychiatric unit at [facility] on 05/02/2018 because of vague suicidal statements as well as wishing on his father and sister. Since his admission on 05/02/2018, Gustavo has shown significant improvement in his mood and has made up with his father. He no longer wishes his father's . He has a healing fracture of Rt. Humeral Head and a significant hematoma above Left Knee which has been draining since Tuesday evening 05/12/2018 and showing gradual resolusion Diagnoses (Updated 05/16/2018): Unspecified Depressive Disorder Alcohol Use Disorder, Severe Cannabis Use Disorder, Moderate Stimulant Use Disorder, Moderate Healing fracture of Rt. Humeral head Left knee hematoma and hemarthrosis Treatment Plan Update: Because the patient starting to experience loose stools, I discontinued the antibiotics and put him on probiotics. Increase trazodone to 150 mg because he reported that he was having difficulty sleeping last night as well. Continue other medications unchanged Continue other medications unchanged
[2018-05-19 15:46] VITALS: BP 168/98
--- NOTE | 2018-05-19 16:52 | SOCIAL WORKER PROG NOTE PSYCH ---
Social Work Progress Note Progress Note Determination Status: PENDED The services requested require additional review. You will be contacted regarding the status of this request if further information is needed. An authorization decision will be made within the required timeframes and details of that decision may be found under the member's authorization history. Member Name Member ID Member Subscriber Name Subscriber ID ANGELA CESAR [id number] 1965 ANGELA CESAR [id number] Pended Authorization # Client Authorization # Type of Request [id number] CONCURRENT Date of Admission/ Start of Services Requested From Submission Date 05/02/2018 05/19/2018 05/19/2018 Level of Service Type of Service Level of Care Type of Care INPATIENT/[facility] MENTAL HEALTH INPATIENT INPATIENT HOSP[facility] - INPATIENT HOSPITAL Reason Code P76 Provider Name & Address Provider ID Provider Alternate ID NPI # for Authorization [facility] [address] [place] [id number] Message P76 Attached Documents There are no documents attached with this Authorization Request Document Title Document Description Authorization Printing & Downloading Options: (For the best print results, please print in 'Landscape' format) Print the Results page (this page) Print the entire Authorization Request Download the entire Authorization Request Return to the [employer] homepage
[2018-05-19 19:32] VITALS: BP 170/112
[2018-05-20 07:59] VITALS: BP 150/97
[2018-05-20 12:35] VITALS: BP 154/93
[2018-05-20 15:56] VITALS: BP 152/91
[2018-05-20 19:35] VITALS: BP 152/94
--- NOTE | 2018-05-20 20:34 | CP SOUTH PROGRESS NOTE PSYCH ---
Psych (Inpt) Progress Note Progress Note Chief Complaint Discussed overnight events with RN and staff. As per RN report, the patient was briefly up during nighttime for nocturia, but slept most of the night. No PRNs/ restrains required in the last 24hrs. I saw the patient this morning with the treatment team. He reported feeling better although he continues to be talkative and irritable at times. However, he denies being depressed nor elated. He denies audiovisual hallucinations. He denies suicidal/homicidal thoughts/intent/plans at present. He is visible in the unit interacting with peers, no safety concerns at present. He has adequate appetite and fair sleep after the increase in Trazodone to 150mg. He is compliant to medications, no side effects reported and none in evidence. Medically, afebrile, ABX was discontinued due to loose stool which is resolving. Wound dressing per medical recs. Vitals reviewed Vital Signs Result Date Time B/P 152/94 05/20 193 Temp 98.8 05/20 1935 Pulse 82 05/20 1935 Resp 17 05/20 0821 O2 Delivery Room Air 05/08 1213 Pulse Ox 99 05/02 1635 Mental Status Examination Consciousness: Awake, alert Orientation: A&O x3, oriented to person, place, year Appearance: appears stated age, dressed in casual attire, fair hygiene, shaved, has left knee dressing on Behavior: calm and cooperative Attitude: articulate, open and engaged Eye Contact: appropriate Speech: talkative but coherent, fluent, spontaneous, clear with regular rate and rhythm Mood: better Affect: mood-congruent, constricted to dysphoric with minimal emotional reactivity Thought Process: organized Thought Content: denies depressive sxs, less mood dysregulation, less irritable, less talkative, denies suicidal/homicidal ideations at the time of the interview , no delusions elicited/verbalized at present Perceptions: denies audiovisual hallucinations at time of interview Attention: attentive Memory: grossly intact immediate, recent and remote Insight: fair Judgment: fair No psychomotor abnormalities Motor: no abnormal movements, Gait WNL Neuro: grossly intact Independent in ADL's and iADL's Labs Reviewed as documented in chart. Allergy Reviewed as documented in chart. Medications Reviewed as documented in chart. Current Medications Sig/Marva Start time Last Medication Dose Route Stop Time Status Admin Al Hydroxide/Mg 30 ML Q4-6 PRN PRN 05/02 1430 AC 05/13 Hydroxide PO 0603 Amlodipine Besylate 2.5 MG DAILY 05/19 1624 AC 05/20 PO 0821 Benztropine Mesylate 1 MG Q6P PRN 05/02 1430 AC PO Diclofenac Sodium 75 MG BID 05/10 1055 AC 05/20 PO 0822 Duloxetine HCl 60 MG DAILY 05/14 0900 AC 05/20 PO 0820 Gabapentin 1,800 MG AT BEDTIME 05/13 2100 AC 05/19 PO 2145 Gabapentin 900 MG 0800,1400 05/13 1400 AC 05/20 PO 1602 Haloperidol 5 MG Q6P PRN 05/02 1430 AC PO Lactobacillus 1 CAP BID 05/18 1041 AC 05/20 Acidophilus PO 0821 Lisinopril 60 MG DAILY 05/19 0900 AC 05/20 PO 0821 Magnesium Hydroxide 30 ML AT BEDTIME PRN 05/02 1430 AC PO Metformin HCl 500 MG 0800,1700 05/03 0800 AC 05/20 PO 1602 Metoprolol Tartrate 100 MG BID 05/17 0900 AC 05/20 PO 0820 Nicotine 14 MG DAILY 05/02 1422 AC 05/20 TOP 0822 Oxycodone HCl 15 MG Q6 05/14 1800 AC 05/20 PO 1805 Trazodone HCl 150 MG AT BEDTIME 05/19 2100 AC 05/19 PO 2143 Trimethoprim/ 1 TAB BID 05/19 2100 AC 05/20 Sulfamethoxazole PO 05/24 0900 0820 Assessment Gustavo Soto is a 52-year-old White Male patient with polysubstances use disorders and unspecified depressive disorder who is less depressed, denies suicidal/homicidal ideations, clinically improving and has no sxs of withdrawal. Diagnosis Unspecified Depressive Disorder Alcohol Use Disorder, Severe Cannabis Use Disorder, Moderate Stimulant Use Disorder, Moderate Healing fracture of Rt. Humeral head Left knee hematoma and hemarthrosis Treatment Plan Continue current medication regimen
--- NOTE | 2018-05-21 01:37 | Event Note ---
Event Note Event Note: Worsening redness and pain in left knee on medial aspect: cellulitis. Redness marked with marker. inguinal lymphadenopathy present. need to rule out underlying collection. will obtain CBC and Consider USG of the knee in am. agree with bactrim
[2018-05-21 07:47] LABS: ABSOLUTE BASOPHIL COUNT 0.1 /CUMM (0.0-0.2); ABSOLUTE EOSINOPHIL COUNT 0.5 /CUMM (0.0-0.7); ABSOLUTE GRANULOCYTE CT 7.6 /CUMM (1.4-6.5); ABSOLUTE LYMPH COUNT 5.8 /CUMM (1.2-3.4); ABSOLUTE MONOCYTE COUNT 2.1 /CUMM (0.10-0.60); BASOPHIL % 0.7 % (0.0-2.0); EOSINOPHIL % 3.2 % (0-5); GRANULOCYTE % 47.4 % (42.2-75.2); HEMATOCRIT 41.9 % (42-52); MEAN CORPUSCULAR HGB 31.1 PG (27.0-31.0); MEAN CORPUSCULAR HGB CONC 32.5 G/DL (33.0-37.0); MEAN CORPUSCULAR VOLUME 95.7 FL (80.0-94.0); MEAN PLATELET VOLUME 9.3 FL (7.4-10.4); PLATELET COUNT 484 /CUMM (130-400); RBC DISTRIBUTION WIDTH 14.3 % (11.5-14.5); RED BLOOD CELL CT 4.38 /CUMM (4.70-6.10)
[2018-05-21 07:55] VITALS: BP 147/67
[2018-05-21 08:09] LABS: WHITE BLOOD CELL COUNT 16.1 /CUMM (4.8-10.8)
[2018-05-21 11:58] VITALS: BP 143/86
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
--- NOTE | 2018-05-21 13:46 | RADIOLOGY REPORT ---
EXAMINATION: XR KNEE, LEFT CLINICAL INFORMATION: Worsening right knee swelling and erythema. Evaluate for increasing knee effusion. COMPARISON: None TECHNIQUE: AP, bilateral oblique, and crosstable lateral views of the left knee. FINDINGS: There is no fracture, malalignment, or joint effusion. There is no significant joint space narrowing. There is moderate anterior soft tissue swelling. IMPRESSION: 1. Moderate anterior soft tissue swelling. Consider prepatellar bursitis. 2. No joint effusion. No bony abnormalities.
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
[2018-05-21 15:40] VITALS: BP 147/95
--- NOTE | 2018-05-21 18:07 | CP SOUTH PROGRESS NOTE PSYCH ---
Psych (Inpt) Progress Note Progress Note Chief Complaint Discussed overnight events with RN and staff. No PRNs/restrains required in the last 24hrs. As per RN report, the patient slept well. He wake up once to urinate. I saw the patient this morning with the treatment team. He reported feeling OK he denies being depressed or anxious. He denies suicidal ideations. He slept well but woke up at 4 am to urinate and was unable to sleep, spent some time reading a magazine and watching TV thereafter had breakfast and took 2hrs nap. Medically, hereported worsening LLE pain, redness and swelling, inquired about wound vac. He is able to ambulate on his LLE. He remains afebrile, his leukocytic counts are trending down, his LLE redness within the marked area. Will contact medical team to evaluate. Vitals reviewed Vital Signs Result Date Time B/P 156/96 05/21 2016 Temp 98.6 05/21 2016 Pulse 77 05/21 2016 O2 Delivery Room Air 05/21 1229 Resp 17 05/21 0819 Pulse Ox 99 05/02 1635 Mental Status Examination Consciousness: Awake, alert Orientation: A&O x3, oriented to person, place, year Appearance: appears stated age, dressed in casual attire, fair hygiene, shaved, has left knee dressing on Behavior: calm and cooperative Attitude: articulate, open and engaged Eye Contact: appropriate Speech: talkative but coherent, fluent, spontaneous, clear with regular rate and rhythm Mood: better Affect: mood-congruent, constricted to dysphoric with minimal emotional reactivity Thought Process: organized Thought Content: denies depressive sxs, less mood dysregulation, less irritable, less talkative, denies suicidal/homicidal ideations at the time of the interview , no delusions elicited/verbalized at present Perceptions: denies audiovisual hallucinations at time of interview Attention: attentive Memory: grossly intact immediate, recent and remote Insight: fair Judgment: fair No psychomotor abnormalities Motor: no abnormal movements, Gait WNL Neuro: grossly intact Independent in ADL's and iADL's Labs Reviewed as documented in chart. Allergy Reviewed as documented in chart. Medications Reviewed as documented in chart. Current Medications Sig/Marva Start time Last Medication Dose Route Stop Time Status Admin Acetaminophen 650 MG Q4P PRN 05/21 1945 AC PO Al Hydroxide/Mg 30 ML Q4-6 PRN PRN 05/02 1430 AC 05/21 Hydroxide PO 1443 Amlodipine Besylate 2.5 MG DAILY 05/19 1624 AC 05/21 PO 0819 Benztropine Mesylate 1 MG Q6P PRN 05/02 1430 AC PO Ciprofloxacin 500 MG Q12 05/21 2100 AC PO 05/25 2059 Diclofenac Sodium 75 MG BID 05/10 1055 AC 05/21 PO 0818 Duloxetine HCl 60 MG DAILY 05/14 0900 AC 05/21 PO 0818 Gabapentin 1,800 MG AT BEDTIME 05/13 2100 AC 05/20 PO 2136 Gabapentin 900 MG 0800,1400 05/13 1400 AC 05/21 PO 1317 Haloperidol 5 MG Q6P PRN 05/02 1430 AC PO Lactobacillus 1 CAP BID 05/18 1041 AC 05/21 Acidophilus PO 0819 Lisinopril 60 MG DAILY 05/19 0900 AC 05/21 PO 0818 Magnesium Hydroxide 30 ML AT BEDTIME PRN 05/02 1430 AC PO Metformin HCl 500 MG 0800,1700 05/03 0800 AC 05/21 PO 1801 Metoprolol Tartrate 100 MG BID 05/17 0900 AC 05/21 PO 0819 Nicotine 14 MG DAILY 05/02 1422 AC 05/20 TOP 0822 Oxycodone HCl 15 MG Q6 PRN 05/21 1945 AC 05/21 PO 2001 Oxycodone HCl 15 MG Q6 05/14 1800 DC 05/21 PO 1142 Trazodone HCl 150 MG AT BEDTIME 05/19 2100 AC 05/20 PO 2136 Trimethoprim/ 1 TAB BID 05/19 2100 AC 05/21 Sulfamethoxazole PO 05/24 0900 0819 Assessment Gustavo Soto is a 52-year-old White Male patient with polysubstances use disorders and unspecified depressive disorder. He appears less depressed but preoccupied about his LLE cellulitis. Diagnosis Unspecified Depressive Disorder Alcohol Use Disorder, Severe Cannabis Use Disorder, Moderate Stimulant Use Disorder, Moderate Healing fracture of Rt. Humeral head Left knee hematoma and hemarthrosis LLE cellulitis Treatment Plan Continue current medication regimen Will contact medical team to reevaluate.
[2018-05-21 20:16] VITALS: BP 156/96
[2018-05-22 07:39] VITALS: BP 140/84
[2018-05-22 08:22] LABS: ABSOLUTE BASOPHIL COUNT 0.2 /CUMM (0.0-0.2); ABSOLUTE EOSINOPHIL COUNT 0.6 /CUMM (0.0-0.7); ABSOLUTE GRANULOCYTE CT 7.6 /CUMM (1.4-6.5); ABSOLUTE LYMPH COUNT 6.1 /CUMM (1.2-3.4); ABSOLUTE MONOCYTE COUNT 1.9 /CUMM (0.10-0.60); BASOPHIL % 1.4 % (0.0-2.0); EOSINOPHIL % 3.8 % (0-5); GRANULOCYTE % 45.8 % (42.2-75.2); HEMATOCRIT 38.8 % (42-52); MEAN CORPUSCULAR HGB 30.9 PG (27.0-31.0); MEAN CORPUSCULAR HGB CONC 32.6 G/DL (33.0-37.0); MEAN PLATELET VOLUME 9.9 FL (7.4-10.4); RBC DISTRIBUTION WIDTH 14.5 % (11.5-14.5); RED BLOOD CELL CT 4.08 /CUMM (4.70-6.10); WHITE BLOOD CELL COUNT 16.5 /CUMM (4.8-10.8)
[2018-05-22 08:51] LABS: PLATELET COUNT 313 /CUMM (130-400)
--- NOTE | 2018-05-22 09:08 | SOCIAL WORKER PROG NOTE PSYCH ---
Social Work Progress Note Progress Note Documentation received from [facility] stating Gustavo has been approved for a senior living facility for up to 60 days. Called Coleen in admissions at [facility]. She was not in last week and needed time to review his referral. She asked that I fax over the [facility] approval. This was faxed at 10am. Faxed a referral to [facility] in [place]. Met with Gustavo and shared the above information. Gustavo shared that he has had 3 visits last week with his Father. Stated visits went well and he kissed his Father on the cheek and told him he loved him. Talked about possibly admission to a nursing facility this week. His mood is a little anxious and down today, due to his knee swelling and redness. The knee seemed to get worse over the weekend. Reports doctor's are looking at it and deciding what needs to be done. He reported he got his food stamp card. He is wondering if his medical insurance is also the same card. I told him I believed that it is. He received the same ID# that he has had. Gustavo was seen by the doctor a short time later and it was determined that he need to be transferred to the medical floor for treatment of his knee. Gustavo was discharged from [facility]. Information on the [facility] process will be given to the social workers on the medical floor.
--- NOTE | 2018-05-22 11:48 | PN- Infect Dx ---
Subjective Subjective: Afebrile. He notes increased swelling around the left knee but minimal pain. Objective Last 24 Hrs of Vital Signs/I&O Vital Signs Date Time Temp Pulse Resp B/P B/P Pulse O2 O2 Flow FiO2 Mean Ox Delivery Rate 05/22 0841 67 140/84 05/22 0841 67 140/84 05/22 0840 67 140/84 05/22 0739 96.9 67 140/84 05/21 2141 98.6 77 17 156/96 05/21 2016 98.6 77 156/96 05/21 1540 72 147/95 05/21 1229 Room Air 05/21 1158 69 143/86 Physical Exam Other Physical Findings: He appears comfortable in no acute distress, able to ambulate without difficulty Extremities erythema over the left thigh, warm to touch, with significant swelling on the medial aspect of the left knee, minimally tender to palpation; several abrasions over the left knee, with a small amount of drainage on the dressing; range of motion of the left knee is fairly good Results Last 24 Hours of Lab Results: Laboratory Tests 05/22 05/22 0641 0640 Chemistry Sodium (137 - 145 mmol/L) 142 Potassium (3.5 - 5.1 mmol/L) 5.6 H Chloride (98 - 107 mmol/L) 104 Carbon Dioxide (22 - 30 mmol/L) 26 Anion Gap (5 - 16) 13 BUN (9 - 20 mg/dL) 16 Creatinine (0.7 - 1.2 mg/dL) 0.8 Estimated GFR (>60 ml/min) > 60 BUN/Creatinine Ratio (7 - 25 %) 20.0 Hematology CBC w Diff NO MAN DIFF REQ WBC (4.8 - 10.8 /CUMM) 16.5 H RBC (4.70 - 6.10 /CUMM) 4.08 L Hgb (14.0 - 18.0 G/DL) 12.6 L Hct (42 - 52 %) 38.8 L MCV (80.0 - 94.0 FL) 95.0 H MCH (27.0 - 31.0 PG) 30.9 MCHC (33.0 - 37.0 G/DL) 32.6 L RDW (11.5 - 14.5 %) 14.5 Plt Count (130 - 400 /CUMM) 313 MPV (7.4 - 10.4 FL) 9.9 Gran % (42.2 - 75.2 %) 45.8 Lymphocytes % (20.5 - 51.1 %) 37.2 Monocytes % (1.7 - 9.3 %) 11.8 H Eosinophils % (0 - 5 %) 3.8 Basophils % (0.0 - 2.0 %) 1.4 Absolute Granulocytes (1.4 - 6.5 /CUMM) 7.6 H Absolute Lymphocytes (1.2 - 3.4 /CUMM) 6.1 H Absolute Monocytes (0.10 - 0.60 /CUMM) 1.9 H Absolute Eosinophils (0.0 - 0.7 /CUMM) 0.6 Absolute Basophils (0.0 - 0.2 /CUMM) 0.2 Last 24 Hours of Alberto Results: No new cultures Recent Imaging Studies: X-ray of the left knee May 21 reveals moderate anterior soft tissue swelling, with no joint effusion Ultrasound of the left knee reveals a heterogeneous mixed solid/cystic abnormality within the subcutaneous, intramuscular plane, measuring 8 x 7 x 4 cm , with thick internal septation Assessment/Plan ID Impression: Left knee inflammation, likely secondary to a hematoma, which may have become infected, with Serratia isolated from a superficial culture, though this may represent skin contamination. Given his increasing erythema and significant edema feel that this fluid collection should be drained, particularly if it is infected. The culture may be affected by the several courses of antibiotics he has received. He is currently afebrile on Ciprofloxacin, which can be continued pending further evaluation. His white blood cell count appears to be chronically elevated, possibly secondary to his postsplenectomy state. Suggestion: 1. Would pursue aspiration of the left knee fluid collection by IR and submit for culture 2. Continue Ciprofloxacin pending above
[2018-05-22 11:54] VITALS: BP 147/78
[2018-05-22] MEDS ORDERED: METOPROLOL TART50 M1 PO (12:10)
[2018-05-22] MEDS ORDERED: NORVASC2.5 M1 PO (12:10)
[2018-05-22] MEDS ORDERED: NICOTINE PATCH1 EAC2 TOP (12:10)
[2018-05-22] MEDS ORDERED: DICLOFENAC SODI75 M2 PO (12:10)
[2018-05-22] MEDS ORDERED: LISINOPRIL20 M1 PO (12:10)
[2018-05-22] MEDS ORDERED: GABAPENTIN300 M2 PO ×2 (12:10)
[2018-05-22] MEDS ORDERED: GLUCOPHAGE500 M1 PO (12:10)
[2018-05-22] MEDS ORDERED: OXYCODONE HCL5 M1 PO (12:10)
[2018-05-22] MEDS ORDERED: CIPRO500 M1 PO (12:10)
[2018-05-22] MEDS ORDERED: CYMBALTA30 M1 PO (12:10)
[2018-05-22] MEDS ORDERED: TRAZODONE HCL50 M1 PO (12:10)
--- NOTE | 2018-05-22 12:12 | Patient Discharge Instructions ---
Psych Discharge Inst General Discharge Information Reason for Admission: thoughts of suicide and wishing father's Psy Discharge Primary Diag+ Unspecified Depressive DO Psy Discharge Secondary Diag+ Alcohol Use Disorder Summary Tests/Major Procedures see Lab section Studies Pending at DC: None Patient Instructions Contact Information Your Psychiatrist on [facility] was Manjit Cristina MD * If you are experiencing an emergency related to this hospitalization, please call [phone] to contact the treating psychiatrist or the psychiatrist-on- call. * To Request a copy of your medical records, please contact the Medical Records Department at [phone]. * To request results of studies pending at the time of discharge, please call [phone]. * Continue your Medications until directed to stop by your Healthcare provider. General Medication Information Please continue to take your new medications and your continued home medications , unless otherwise indicated on your discharge medication list, or unless directed by your MD or PEDIATRICS PHYSICIAN to stop them. Special Instructions Diet Diabetic Activity As Tolerated - Tobacco Use Treatment Offered Post DC Medications Offered: Script Given-See Med List Post DC Tobacco Treatment Plan: Not Applicable - EtOH/Drug Use D/O Treatment Offered Post DC Medications Offered: Med Not Indicated for D/O Post DC EtOH/SubAbuse TX Plan: NA-No EtOH/Drug Use D/O Metabolic Screening Not Applicable, patient not on a neuroleptic. Advance Directives Does the Patient have Medical Advance Directives No/Refused further info Does Pt have Psychiatric Advance Directives? No/Refused further info Does Patient have a Designated Surrogate Decision Maker: No Information About Psychiatric Advance Directives Provided? Refused Discharge Plan Post Hospital Treatment Plan: N/A, transferred to Med/Surg
--- NOTE | 2018-05-22 12:57 | CP SOUTH PROGRESS NOTE PSYCH ---
Psych (Inpt) Progress Note Progress Note The patient would be transferred to the medical floor because of worsening of his left knee condition it looks like there is more swelling and inflammation and signs of infection. As for his mental Status He does not have any mood related complaints. He reports that he is in a good mood and he seems to be a bright in his affect with full range of affect. He has very good sense of humor. He was awake, alert, and oriented to person, place, and time Appearance: appears stated age, dressed in casual attire, fair hygiene, shaved, has left knee dressing on Behavior: calm and cooperative Attitude: articulate, open and engaged Eye Contact: appropriate Speech: talkative but coherent, fluent, spontaneous, clear with regular rate and rhythm Mood: better Affect: mood-congruent, constricted to dysphoric with minimal emotional reactivity Thought Process: organized Thought Content: denies depressive sxs, less mood dysregulation, less irritable, less talkative, denies suicidal/homicidal ideations at the time of the interview , no delusions elicited/verbalized at present, denies audiovisual hallucinations at time of interview, Attention: attentive No psychomotor abnormalities Motor: no abnormal movements, Gait WNL Neuro: grossly intact Treatment Plan Transfer to medicine to attend to worsening condition of left knee /above knee infection
--- NOTE | 2018-05-22 15:46 | DISCHARGE SUMMARY REPORT-PSYCH ---
Visit Information Visit Dates/Diagnosis' Admission Date: 05/02/18 Discharge Date: 05/22/18 Reason for Admission: thoughts of suicide and wishing father's Psy Discharge Primary Diag: Unspecified Depressive DO Psy Discharge Secondary Diag: Alcohol Use Disorder Hospital Course Course Allergies: Coded Allergies: NO KNOWN ALLERGIES (NONE 05/05/18) Hospital Course/TX Response: The patient would be transferred to the medical floor because of worsening of his left knee condition it looks like there is more swelling and inflammation and signs of infection. As for his mental Status He does not have any mood related complaints. He reports that he is in a good mood and he seems to be a bright in his affect with full range of affect. He has very good sense of humor. He was awake, alert, and oriented to person, place, and time Appearance: appears stated age, dressed in casual attire, fair hygiene, shaved, has left knee dressing on Behavior: calm and cooperative Attitude: articulate, open and engaged Eye Contact: appropriate Speech: talkative but coherent, fluent, spontaneous, clear with regular rate and rhythm Mood: better Affect: mood-congruent, constricted to dysphoric with minimal emotional reactivity Thought Process: organized Thought Content: denies depressive sxs, less mood dysregulation, less irritable, less talkative, denies suicidal/homicidal ideations at the time of the interview , no delusions elicited/verbalized at present, denies audiovisual hallucinations at time of interview, Attention: attentive No psychomotor abnormalities Motor: no abnormal movements, Gait WNL Neuro: grossly intact Treatment Plan Transfer to medicine to attend to worsening condition of left knee /above knee infection Discharge HBIPS - Tobacco Use Treatment Offered Post DC Medications Offered: Script Given-See Med List - EtOH/Drug Use D/O Treatment Offered Metabolic Screening - Screen if on a Neuroleptic Medication - Metabolic screening should include: - Blood Pressure, BMI, Glucose or Hgb A1c, & a - Lipid profile from within the past 365 days. Discharge Instructions General Discharge Information Discharge Diet Diabetic Discharge Activity As Tolerated Referrals Ordered Referrals Provider Referral 05/22/18 For Groups: [[facility] Medical Floor] Patient is transferring from [facility] to the medical floor for a medical reasons. 05/22/18 Prescriptions Stop taking the following medications: Gabapentin (Neurontin) 300 MG CAPSULE ORAL EVERY SIX HOURS as needed for ANXIETY Metoprolol Tartrate (Metoprolol Tartrate) 25 MG TABLET ORAL TWICE DAILY Hydrochlorothiazide (Hydrochlorothiazide) 25 MG TABLET ORAL DAILY Lisinopril (Lisinopril) 20 MG TABLET ORAL DAILY Start taking the following new medications: Ciprofloxacin HCl (Cipro) 500 MG TABLET 500 Milligram ORAL EVERY 12 HOURS Qty = 1 No Refills Comments: Last Taken:05/22/18 Time:0839 Nicotine (Nicotine Patch) 14 MG/24 HOUR PATCH.TD24 14 Milligram On the skin DAILY Qty = 1 No Refills Comments: Last Taken:05/20/18 @ 0822;REFUSING/NO LONGER USING IN HOSPITAL Metoprolol Tartrate (Metoprolol Tartrate) 50 MG TABLET 100 Milligram ORAL TWICE DAILY Qty = 10 No Refills Comments: Last Taken:05/22/18 Time:0840 Amlodipine (Norvasc) 2.5 MG TABLET 2.5 Milligram ORAL DAILY Qty = 1 No Refills Comments: Last Taken:05/22/18 Time:0841 Lisinopril (Lisinopril) 20 MG TABLET 60 Milligram ORAL DAILY Qty = 10 No Refills Comments: Last Taken:05/22/18 Time:0841 Diclofenac Sodium (Diclofenac Sodium) 75 MG TABLET.DR 75 Milligram ORAL TWICE DAILY Qty = 60 No Refills Comments: Last Taken:05/22/18 Time:0841 Oxycodone HCl (Oxycodone HCl) 5 MG TABLET 20 Milligram ORAL EVERY SIX HOURS NEEDED as needed for PAIN SCALE 7-10 ( SEVERE) Qty = 20 No Refills Comments: Last Taken:05/22/18 Time:1209 Gabapentin (Gabapentin) 300 MG CAPSULE 1,800 Milligram ORAL AT BEDTIME Qty = 30 No Refills Comments: Last Taken:05/21/18 Time:2141 Gabapentin (Gabapentin) 300 MG CAPSULE 900 Milligram ORAL 0800,1400 Qty = 30 No Refills Comments: Last Taken:05/22/18 Time:0839 Duloxetine Hydrochloride (Cymbalta) 30 MG CAPSULE.DR 90 Milligram ORAL DAILY Qty = 30 No Refills Comments: Last Taken:05/22/18 Time:0838 Trazodone HCl (Trazodone HCl) 50 MG TABLET 200 Milligram ORAL AT BEDTIME Qty = 30 No Refills Comments: Last Taken:05/21/18 (150MG) 200MG TO START 05/22/18 Time:2141 Metformin Hydochloride (Glucophage) 500 MG TABLET 500 Milligram ORAL 0800,1700 Qty = 30 No Refills Comments: Last Taken:05/22/18 Time:0839 Studies Pending at Discharge None
== END 2018-05-22 13:08 | disposition short-term general hospital (02) | DRG 754 ==
LOC: ERH 17:29 → CP SOUTH 05-02 14:16 → ERHI 05-02 14:16 → ENTRNSPT 05-02 15:26 → EDTRNSPTSTS 05-02 15:40 → EDTRNSPT 05-02 15:40 → CP SOUTH 05-02 16:53 → CMPTRNSPT 05-02 17:02 → CP SOUTH 05-03 09:23
PROVIDERS: Emergency Medicine; Internal Medicine; Psychiatry & Neurology Psychiatry; Student in an Organized Health Care Education/Training Program
DX: F32.9 Major depressive disorder, single episode, unspecified (principal); Z72.89 Other problems related to lifestyle
CPT/HCPCS: 87075; 36415; 71100-LT; 73030-RT; 73560-LT; 73562-LT; 76881; 80307; 82436; 87040; 87070; 93005; 93010; G0463; G0480; J0515; J1630; J3490

== ENCOUNTER 2018-05-22 12:05 | Inpatient (IN) | payer OTHER ==
[~2018-05-22] VITALS: Ht 167.6 cm; Wt 73.3 kg
[~2018-05-22 12:05] MED LIST changes: +HYDROCHLOROTHIA25 M1 PO; +LISINOPRIL20 M1 PO; +METOPROLOL TART25 M1 PO; +NEURONTIN300 M1 PO
[2018-05-22] MEDS ORDERED: METOPROLOL TART50 M1 PO (12:10)
[2018-05-22] MEDS ORDERED: CIPRO500 M1 PO (12:10)
[2018-05-22] MEDS ORDERED: NICOTINE PATCH1 EAC2 TOP (12:10)
[2018-05-22] MEDS ORDERED: TRAZODONE HCL50 M1 PO (12:10)
[2018-05-22] MEDS ORDERED: DICLOFENAC SODI75 M2 PO (12:10)
[2018-05-22] MEDS ORDERED: GABAPENTIN300 M2 PO ×2 (12:10)
[2018-05-22] MEDS ORDERED: CYMBALTA30 M1 PO (12:10)
[2018-05-22] MEDS ORDERED: NORVASC2.5 M1 PO (12:10)
[2018-05-22] MEDS ORDERED: LISINOPRIL20 M1 PO (12:10)
[2018-05-22] MEDS ORDERED: OXYCODONE HCL5 M1 PO (12:10)
[2018-05-22] MEDS ORDERED: GLUCOPHAGE500 M1 PO (12:10)
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
[2018-05-22 14:00] VITALS: BP 160/80
--- NOTE | 2018-05-22 15:32 | PN- Att Addend ---
Attending Addendum Attending Brief Note 52-year-old who male with past medical history significant hypertension, diabetes, alcohol dependence, hepatitis C who was admitted to Inpatient Psychiatry with some depression and suicidal ideation. Patient had also injured his left knee about 3 weeks ago. He claims that his knee was aspirated and then the hospital about 3 weeks ago. Then during the Inpatient Psychiatry admission he was started on oral antibiotics. He was also seen by orthopedic and apparently some gelatinous material was squeezed out from his left knee. The swelling of the left knee and erythema continued to get worse. He still has an opening on the left kidney which continues to drain. He was seen by infectious disease and they recommended interventional radiology guided drainage. The culture from the left knee grew Serratia. Patient does complain of pain in the left knee. The left knee is swollen erythematous and has limited range of motion. He also complained of pain in his right shoulder. Patient continues to have leukocytosis. Patient is afebrile. Psychiatrist had cleared the patient and he does not have any further suicidal ideation. Vital Signs Date Time Temp Pulse Resp B/P B/P Pulse O2 O2 Flow FiO2 Mean Ox Delivery Rate 05/22 1400 98.4 72 20 160/80 100 Room Air on exam; aox3, nad. cv; s1,s2, rrr resp; clear abd; soft, nt, bs+ ext; no edema ms: + left knee erythema, swelling on left knee which is extended to his thigh. no labs. A/P: 52-year-old who male with past medical history significant hypertension, diabetes, alcohol dependence, hepatitis C was admitted to inpatient psychiatry with suicidal ideation and depression. Now admitted to medicine with left knee swelling, erythema with the possibility off infection and septic arthritis. Patient is admitted to medicine. He will undergo IR guided/ultrasound-guided aspiration of the left knee. We'll follow-up on the Gram stain culture and crystals. Currently patient treated with Cipro. He is also diabetic and he will receive Accu-Cheks with sliding scale coverage. Please continue the patient on his anti-hypertensives. We'll obtain CBC and BMP in the morning. Will obtain infectious disease consultation. DVT prophylaxis: Heparin subcutaneous. We will also consider orthopedic consultation pending above results.
--- NOTE | 2018-05-22 16:38 | ULTRASOUND REPORT ---
EXAMINATION: 1. Superficial ultrasound of left knee 2. Ultrasound-guided aspiration of complex right knee fluid collection (suprapatellar) CLINICAL INFORMATION: 52-year-old male with complex fluid collection identified within the suprapatellar region of the left knee. Concern for infection. Aspiration requested with sample to be sent for culture. COMPARISON: Left knee ultrasound 05/21/2018 INTERVENTIONAL RADIOLOGIST: Harry Swartz M.D. TECHNIQUE: Informed consent was obtained from the patient was obtained prior to the procedure. During this process, the procedure and potential alternatives were explained along with the intended outcome and benefits. The risks of the procedure including the possibility of an unsuccessful procedure, as well as the risk of not doing the procedure were discussed. The patient was given the opportunity to ask questions regarding the procedure and competent to make decisions. A signed consent form which documents this discussion was placed in the medical record. Following informed consent, the patient was placed supine on the procedure table. Diagnostic imaging was performed of the left suprapatellar region which demonstrated a large complex fluid collection. The skin was marked and then prepped and draped in usual sterile fashion. Under direct sonographic guidance, a 20-gauge spinal needle was advanced into the collection. Approximately 105 mL of thin, serosanguineous, nonclotting fluid was aspirated. There was near complete collapse of the fluid collection with primarily only soft tissue edema remaining. The needle was removed and pressure held for approximately 5 minutes until hemostasis was achieved. A sterile dressing was placed. Impression: Successful ultrasound-guided aspiration of complex left suprapatellar fluid collection. Fluid sent for culture.
[2018-05-22 18:43] VITALS: BP 180/100
[2018-05-22 22:11] VITALS: BP 158/90
[2018-05-23 05:38] VITALS: BP 148/86
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
[2018-05-23 09:37] LABS: ABSOLUTE BASOPHIL COUNT 0.1 /CUMM (0.0-0.2); ABSOLUTE EOSINOPHIL COUNT 0.8 /CUMM (0.0-0.7); ABSOLUTE GRANULOCYTE CT 4.9 /CUMM (1.4-6.5); ABSOLUTE LYMPH COUNT 5.1 /CUMM (1.2-3.4); BASOPHIL % 0.6 % (0.0-2.0); EOSINOPHIL % 6.5 % (0-5); HEMATOCRIT 40.9 % (42-52); MEAN CORPUSCULAR HGB 31.1 PG (27.0-31.0); MEAN CORPUSCULAR HGB CONC 32.6 G/DL (33.0-37.0); MEAN CORPUSCULAR VOLUME 95.4 FL (80.0-94.0); MEAN PLATELET VOLUME 9.5 FL (7.4-10.4); RBC DISTRIBUTION WIDTH 14.2 % (11.5-14.5); RED BLOOD CELL CT 4.29 /CUMM (4.70-6.10)
[2018-05-23 10:29] LABS: PLATELET COUNT 513 /CUMM (130-400); WHITE BLOOD CELL COUNT 12.8 /CUMM (4.8-10.8)
--- NOTE | 2018-05-23 10:52 | PN- Infect Dx ---
Subjective Subjective: Afebrile. He notes minimal discomfort in the left knee. Objective Last 24 Hrs of Vital Signs/I&O Vital Signs Date Time Temp Pulse Resp B/P B/P Pulse O2 O2 Flow FiO2 Mean Ox Delivery Rate 05/23 09 75 132/88 05/23 0910 75 132/88 05/23 0909 75 132/88 05/23 0538 97.6 68 20 148/86 95 Room Air 05/22 2211 98.4 93 18 158/90 95 Room Air 05/22 2050 100 180/100 05/22 1847 180/100 05/22 1843 99.0 91 18 180/100 96 Room Air 05/22 1400 98.4 72 20 160/80 100 Room Air Intake & Output 05/23 1600 05/23 0800 05/23 0000 Intake Total 360 800 Output Total Balance 360 800 Intake, Oral 360 800 Patient 162 lb Weight Physical Exam Other Physical Findings: He appears comfortable in no acute distress Extremities decreased swelling of the left knee, with decreased erythema of the left lower extremity, minimally tender to palpation, with good range of motion of the left knee Results Last 24 Hours of Lab Results: Laboratory Tests 05/23 05/22 0605 1421 Chemistry Sodium (137 - 145 mmol/L) 143 Potassium (3.5 - 5.1 mmol/L) 5.2 H Chloride (98 - 107 mmol/L) 102 Carbon Dioxide (22 - 30 mmol/L) 25 Anion Gap (5 - 16) 16 BUN (9 - 20 mg/dL) 14 Creatinine (0.7 - 1.2 mg/dL) 0.7 Estimated GFR (>60 ml/min) > 60 BUN/Creatinine Ratio (7 - 25 %) 20.0 Hematology CBC w Diff NO MAN DIFF REQ WBC (4.8 - 10.8 /CUMM) 12.8 H RBC (4.70 - 6.10 /CUMM) 4.29 L Hgb (14.0 - 18.0 G/DL) 13.3 L Hct (42 - 52 %) 40.9 L MCV (80.0 - 94.0 FL) 95.4 H MCH (27.0 - 31.0 PG) 31.1 H MCHC (33.0 - 37.0 G/DL) 32.6 L RDW (11.5 - 14.5 %) 14.2 Plt Count (130 - 400 /CUMM) 513 H MPV (7.4 - 10.4 FL) 9.5 Gran % (42.2 - 75.2 %) 38.0 L Lymphocytes % (20.5 - 51.1 %) 39.4 Monocytes % (1.7 - 9.3 %) 15.5 H Eosinophils % (0 - 5 %) 6.5 H Basophils % (0.0 - 2.0 %) 0.6 Absolute Granulocytes (1.4 - 6.5 /CUMM) 4.9 Absolute Lymphocytes (1.2 - 3.4 /CUMM) 5.1 H Absolute Monocytes (0.10 - 0.60 /CUMM) 2.0 H Absolute Eosinophils (0.0 - 0.7 /CUMM) 0.8 Absolute Basophils (0.0 - 0.2 /CUMM) 0.1 Other Body Source Fluid WBC Cancelled Fld Total RBCs Counted Cancelled Last 24 Hours of Alberto Results: Left knee fluid culture May 22 negative, with the gram stain revealing many white blood cells and no organisms Assessment/Plan ID Impression: Stable, with temperatures remaining normal and white blood cell count decreased today, status post drainage of 105 cc of thin, serosanguineous fluid from the left suprapatellar region. The culture is so far negative, possibly secondary to the antibiotics he has received, but this may just represent a noninfected hematoma. He remains on Ciprofloxacin for Serratia, which was isolated from a superficial culture, and this can be continued pending final cultures. Suggestion: 1. Follow-up final culture from the recent aspiration 2. Continue Ciprofloxacin pending above
--- NOTE | 2018-05-23 14:08 | Patient Discharge Instructions ---
Discharge Instructions General Discharge Information You were seen/treated for: left knee infection right arm fracture Special Instructions: 1. please follow up with new PCP Dr. Seaman in one week 2. please follow up with orthopedics Dr. Cross in one week 3. please follow up with wound care in one week 4. please follow up with general surgeon Dr. Cooper in one week Diet Continue normal diet: Yes Activity Full Activity/No Limits: Yes (as tolerated) Acute Coronary Syndrome Inclusion Criteria At DC or during hospital stay patient has or had the following: ACS DIAGNOSIS No Discharge Core Measures Meds if any: Prescribed or Continued at Discharge Meds if any: NOT Prescribed or Continued at Discharge Congestive Heart Failure Inclusion Criteria At DC or during hospital stay patient has or had the following: CHF DIAGNOSIS No Discharge Core Measures Meds if any: Prescribed or Continued at Discharge Meds if any: NOT Prescribed or Continued at Discharge Cerebrovascular accident Inclusion Criteria At DC or during hospital stay patient has or had the following: CVA/TIA Diagnosis No Discharge Core Measures Meds if any: Prescribed or Continued at Discharge Meds if any: NOT Prescribed or Continued at Discharge Venous thromboembolism Inclusion Criteria VTE Diagnosis No VTE Type NONE VTE Confirmed by (Test) NONE Discharge Core Measures - Per Current guidelines, there needs to be overlap - treatment for the first 5 days of Warfarin therapy. - If discharged on Warfarin prior to 5 days of - overlap therapy, the patient will need to be - assessed for post discharge needs including - *Post discharge parental anticoagulation - *Warfarin and/or parental anticoagulation education - *Follow up date to check INR post discharge At least 5 days overlap therapy as Inpatient No Meds if any: Prescribed or Continued at Discharge Note: Overlap Therapy is Warfarin and Anticoagulant Meds if any: NOT Prescribed or Continued at Discharge
[2018-05-23 14:18] VITALS: BP 148/95
[2018-05-23 22:26] VITALS: BP 160/98
[2018-05-24 06:20] VITALS: BP 146/78
[2018-05-24 08:27] LABS: ABSOLUTE BASOPHIL COUNT 0.1 /CUMM (0.0-0.2); ABSOLUTE GRANULOCYTE CT 5.2 /CUMM (1.4-6.5); ABSOLUTE LYMPH COUNT 4.5 /CUMM (1.2-3.4); ABSOLUTE MONOCYTE COUNT 1.7 /CUMM (0.10-0.60); BASOPHIL % 1.1 % (0.0-2.0); EOSINOPHIL % 7.8 % (0-5); GRANULOCYTE % 41.7 % (42.2-75.2); HEMATOCRIT 37.8 % (42-52); MEAN CORPUSCULAR HGB 31.2 PG (27.0-31.0); MEAN CORPUSCULAR HGB CONC 32.8 G/DL (33.0-37.0); MEAN CORPUSCULAR VOLUME 95.4 FL (80.0-94.0); MEAN PLATELET VOLUME 9.2 FL (7.4-10.4); PLATELET COUNT 499 /CUMM (130-400); RBC DISTRIBUTION WIDTH 14.4 % (11.5-14.5); RED BLOOD CELL CT 3.96 /CUMM (4.70-6.10)
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
[2018-05-24 10:23] LABS: WHITE BLOOD CELL COUNT 12.6 /CUMM (4.8-10.8)
[2018-05-24 15:31] VITALS: BP 140/70
[2018-05-24 21:54] VITALS: BP 150/70
[2018-05-25 06:35] VITALS: BP 150/100
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
--- NOTE | 2018-05-25 11:20 | PN- Infect Dx ---
Subjective Subjective: Afebrile. He notes reaccumulation of the fluid in his left knee with some discomfort. Objective Last 24 Hrs of Vital Signs/I&O Vital Signs Date Time Temp Pulse Resp B/P B/P Pulse O2 O2 Flow FiO2 Mean Ox Delivery Rate 05/25 1011 Room Air 05/25 0950 Room Air 05/25 0839 82 158/78 05/25 0839 82 158/78 05/25 0838 82 158/78 05/25 0723 Room Air 05/25 0635 98.7 77 20 150/100 93 Room Air 05/24 2154 98.6 100 18 150/70 97 05/24 2119 98.6 100 20 150/72 05/24 1531 98.2 71 20 140/70 93 Intake & Output 05/25 1600 05/25 0800 05/25 0000 Intake Total 400 500 Output Total Balance 400 500 Intake, Oral 400 500 Physical Exam Other Physical Findings: He appears comfortable in no acute distress Extremities increased swelling around the left knee, with mild erythema and tenderness, but with good range of motion of the left knee Results Last 24 Hours of Lab Results: Laboratory Tests 05/25 1106 Hematology CBC w Diff Pending WBC Pending RBC Pending Hgb Pending Hct Pending MCV Pending MCH Pending MCHC Pending RDW Pending Plt Count Pending MPV Pending Last 24 Hours of Alberto Results: Left knee fluid aspiration May 22 positive for Serratia sensitive to Ciprofloxacin Assessment/Plan ID Impression: Stable, with temperatures remaining normal and white blood cell count overall decreased, on Ciprofloxacin status post drainage of 105 cc of thin, serosanguineous fluid from the left suprapatellar region 3 days ago. The culture from the aspiration is positive for Serratia, suggesting that this represents an infected hematoma and suspect that this will require drainage. Suggestion: 1. Orthopedic follow-up for drainage of the left knee 2. Consider MRI of the left knee based on above 3. Continue Ciprofloxacin
[2018-05-25 13:38] LABS: ABSOLUTE BASOPHIL COUNT 0.1 /CUMM (0.0-0.2); ABSOLUTE EOSINOPHIL COUNT 0.8 /CUMM (0.0-0.7); ABSOLUTE GRANULOCYTE CT 6.6 /CUMM (1.4-6.5); ABSOLUTE LYMPH COUNT 5.3 /CUMM (1.2-3.4); ABSOLUTE MONOCYTE COUNT 1.9 /CUMM (0.10-0.60); BASOPHIL % 0.5 % (0.0-2.0); EOSINOPHIL % 5.6 % (0-5); HEMATOCRIT 37.6 % (42-52); MEAN CORPUSCULAR HGB 30.9 PG (27.0-31.0); MEAN CORPUSCULAR HGB CONC 32.5 G/DL (33.0-37.0); MEAN CORPUSCULAR VOLUME 94.9 FL (80.0-94.0); MEAN PLATELET VOLUME 9.2 FL (7.4-10.4); PLATELET COUNT 506 /CUMM (130-400); RBC DISTRIBUTION WIDTH 14.3 % (11.5-14.5); RED BLOOD CELL CT 3.96 /CUMM (4.70-6.10); WHITE BLOOD CELL COUNT 14.6 /CUMM (4.8-10.8)
[2018-05-25 14:02] VITALS: BP 130/80
[2018-05-25 14:06] LABS: GRANULOCYTE % 45.2 % (42.2-75.2)
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
[2018-05-25 22:24] VITALS: BP 148/102
[2018-05-26] VITALS: BP 130/80
[2018-05-26 06:20] VITALS: BP 150/88
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
[2018-05-26 08:56] LABS: ABSOLUTE BASOPHIL COUNT 0.2 /CUMM (0.0-0.2); ABSOLUTE GRANULOCYTE CT 6.4 /CUMM (1.4-6.5); ABSOLUTE LYMPH COUNT 5.8 /CUMM (1.2-3.4); EOSINOPHIL % 6.6 % (0-5); HEMATOCRIT 39.7 % (42-52); MEAN CORPUSCULAR HGB 31.2 PG (27.0-31.0); MEAN CORPUSCULAR HGB CONC 32.6 G/DL (33.0-37.0); MEAN CORPUSCULAR VOLUME 95.7 FL (80.0-94.0); MEAN PLATELET VOLUME 9.1 FL (7.4-10.4); RBC DISTRIBUTION WIDTH 14.9 % (11.5-14.5); RED BLOOD CELL CT 4.15 /CUMM (4.70-6.10); WHITE BLOOD CELL COUNT 15.4 /CUMM (4.8-10.8)
[2018-05-26 08:59] LABS: PTT 32 SEC (25-37)
[2018-05-26 09:16] LABS: PLATELET COUNT 495 /CUMM (130-400)
[2018-05-26 09:17] LABS: GRANULOCYTE % 41.8 % (42.2-75.2)
--- NOTE | 2018-05-26 10:58 | PN- Att Addend ---
Attending Addendum Attending Brief Note Patient seen and examined, was complaining of pain in his knee. Patient was kept n.p.o. last night in case if he needs to go for knee surgery. He was seen by Dr. Qureshi last night. Dr. Qureshi recommend doing a CAT scan of the LE/Knee to exactly see where the pockets of fluid are so that they can be either drained or managed accordingly. Vital Signs Date Time Temp Pulse Resp B/P B/P Pulse O2 O2 Flow FiO2 Mean Ox Delivery Rate 05/26 828 72 144/98 05/26 0828 72 144/98 05/26 0828 72 144/98 05/26 0620 99.1 87 16 150/88 96 Room Air / 0000 80 130/80 / 2224 98.4 95 14 148/102 96 Room Air 05/25 2140 80 130/80 07/05 1402 98.6 83 22 130/80 99 on exam; aox3, nad. cv; s1,s2, rrr resp; clear abd; soft, nt, bs+ ext; no edema ms: Left knee is still swollen and erythmatous. Laboratory Tests 05/26 05/25 0640 1106 Chemistry Sodium (137 - 145 mmol/L) 139 Potassium (3.5 - 5.1 mmol/L) 4.6 Chloride (98 - 107 mmol/L) 101 Carbon Dioxide (22 - 30 mmol/L) 26 Anion Gap (5 - 16) 11 BUN (9 - 20 mg/dL) 12 Creatinine (0.7 - 1.2 mg/dL) 0.6 L Estimated GFR (>60 ml/min) > 60 BUN/Creatinine Ratio (7 - 25 %) 20.0 Coagulation PT (9.4 - 12.5 SEC) 12.0 INR (0.90 - 1.17) 1.10 APTT (25 - 37 SEC) 32 Hematology CBC w Diff NO MAN DIFF REQ NO MAN DIFF REQ WBC (4.8 - 10.8 /CUMM) 15.4 H 14.6 H RBC (4.70 - 6.10 /CUMM) 4.15 L 3.96 L Hgb (14.0 - 18.0 G/DL) 12.9 L 12.2 L Hct (42 - 52 %) 39.7 L 37.6 L MCV (80.0 - 94.0 FL) 95.7 H 94.9 H MCH (27.0 - 31.0 PG) 31.2 H 30.9 MCHC (33.0 - 37.0 G/DL) 32.6 L 32.5 L RDW (11.5 - 14.5 %) 14.9 H 14.3 Plt Count (130 - 400 /CUMM) 495 H 506 H MPV (7.4 - 10.4 FL) 9.1 9.2 Gran % (42.2 - 75.2 %) 41.8 L 45.2 Lymphocytes % (20.5 - 51.1 %) 37.5 36.0 Monocytes % (1.7 - 9.3 %) 13.1 H 12.7 H Eosinophils % (0 - 5 %) 6.6 H 5.6 H Basophils % (0.0 - 2.0 %) 1.0 0.5 Absolute Granulocytes (1.4 - 6.5 /CUMM) 6.4 6.6 H Absolute Lymphocytes (1.2 - 3.4 /CUMM) 5.8 H 5.3 H Absolute Monocytes (0.10 - 0.60 /CUMM) 2.0 H 1.9 H Absolute Eosinophils (0.0 - 0.7 /CUMM) 1.0 0.8 Absolute Basophils (0.0 - 0.2 /CUMM) 0.2 0.1 A/P: 52-year-old who male with past medical history significant hypertension, diabetes, alcohol dependence, hepatitis C was admitted to inpatient psychiatry with suicidal ideation and depression. Now admitted to medicine with left knee swelling, erythema. Patient has infected hematoma with a component of cellulitis. Patient was seen by Dr. Qureshi. He recommends obtaining a CAT scan of the lower extremity and need to see where the pockets of the fluids R. No surgical intervention planned yet under the illness to be get that study done to severe the fluid needs to be drained from. Patient currently n.p.o. and on IV fluids. If no surgical interventions planned then patient will be started back on diet. Patient on Cipro for an infected hematoma which grew Serratia. Pain mx: Oxycodone. Continue the rest of the Mx. DVT px; Hep sq.
--- NOTE | 2018-05-26 12:33 | CT SCAN REPORT ---
EXAMINATION: CT LOWER EXTREMITY WITH CONTRAST, LEFT CLINICAL INFORMATION: Left knee pain, erythema, edema. Evaluate knee infection. COMPARISON: Ultrasound guided left knee suprapatellar fluid collection aspiration 05/22/2018. X-rays of the left knee 05/21/2018. TECHNIQUE: Helical scanning was performed with submillimeter collimation in the axial plane with multiplanar 2-D reconstructions. DLP: 536.14 mGy-cm FINDINGS: There is a large complex thick-walled fluid collection in the anteromedial subcutaneous tissues of the knee extending from the level of the distal femoral diaphysis to the proximal tibial metaphysis. This measures approximately 13.3 x 9.4 x 3.4 cm (oblique CC x TRV x AP). A small amount of air in the fluid collection may have been introduced during the ultrasound-guided aspiration. There is mass effect on the underlying vastus medialis muscle but no clear involvement of the muscle is identified. There is no knee joint effusion. There is minor spurring in the medial compartment. The left knee is otherwise unremarkable. IMPRESSION: Large complex thick-walled fluid collection in the anteromedial subcutaneous tissues of the knee. This may represent a complex prepatellar bursitis and/or abscess.
--- NOTE | 2018-05-26 13:43 | PN- Infect Dx ---
Subjective Subjective: Afebrile. He notes some discomfort in the left knee. Objective Last 24 Hrs of Vital Signs/I&O Vital Signs Date Time Temp Pulse Resp B/P B/P Pulse O2 O2 Flow FiO2 Mean Ox Delivery Rate 05/26 828 72 144/98 05/26 0828 72 144/98 05/26 0828 72 144/98 05/26 0800 Room Air 05/26 0620 99.1 87 16 150/88 96 Room Air 05/26 0000 80 130/80 05/25 2224 98.4 95 14 148/102 96 Room Air 05/25 2140 80 130/80 / 1402 98.6 83 22 130/80 99 Intake & Output 05/26 1600 05/26 0800 05/26 0000 Intake Total 600 Output Total Balance 600 Intake, Oral 600 Patient 161 lb Weight Physical Exam Other Physical Findings: He appears comfortable in no acute distress Extremities swelling on the lateral aspect of the left knee persists, with no change in the erythema, minimally tender to palpation, with good range of motion Results Last 24 Hours of Lab Results: Laboratory Tests 05/26 640 Chemistry Sodium (137 - 145 mmol/L) 139 Potassium (3.5 - 5.1 mmol/L) 4.6 Chloride (98 - 107 mmol/L) 101 Carbon Dioxide (22 - 30 mmol/L) 26 Anion Gap (5 - 16) 11 BUN (9 - 20 mg/dL) 12 Creatinine (0.7 - 1.2 mg/dL) 0.6 L Estimated GFR (>60 ml/min) > 60 BUN/Creatinine Ratio (7 - 25 %) 20.0 Coagulation PT (9.4 - 12.5 SEC) 12.0 INR (0.90 - 1.17) 1.10 APTT (25 - 37 SEC) 32 Hematology CBC w Diff NO MAN DIFF REQ WBC (4.8 - 10.8 /CUMM) 15.4 H RBC (4.70 - 6.10 /CUMM) 4.15 L Hgb (14.0 - 18.0 G/DL) 12.9 L Hct (42 - 52 %) 39.7 L MCV (80.0 - 94.0 FL) 95.7 H MCH (27.0 - 31.0 PG) 31.2 H MCHC (33.0 - 37.0 G/DL) 32.6 L RDW (11.5 - 14.5 %) 14.9 H Plt Count (130 - 400 /CUMM) 495 H MPV (7.4 - 10.4 FL) 9.1 Gran % (42.2 - 75.2 %) 41.8 L Lymphocytes % (20.5 - 51.1 %) 37.5 Monocytes % (1.7 - 9.3 %) 13.1 H Eosinophils % (0 - 5 %) 6.6 H Basophils % (0.0 - 2.0 %) 1.0 Absolute Granulocytes (1.4 - 6.5 /CUMM) 6.4 Absolute Lymphocytes (1.2 - 3.4 /CUMM) 5.8 H Absolute Monocytes (0.10 - 0.60 /CUMM) 2.0 H Absolute Eosinophils (0.0 - 0.7 /CUMM) 1.0 Absolute Basophils (0.0 - 0.2 /CUMM) 0.2 Last 24 Hours of Alberto Results: No new cultures Recent Imaging Studies: CT of the left leg reveals a large complex thick-walled fluid collection in the anteromedial subcutaneous tissue of the knee extending from the level of the distal femoral diaphysis to the proximal tibial metaphysis and measuring 13.3 x 9.4 x 3.4 cm; no knee joint effusion Assessment/Plan ID Impression: Stable, with temperatures remaining normal but with his white blood cell count increasing, likely secondary to the persistent fluid collection noted on exam and confirmed on the recent CT scan, which is felt to be an infected hematoma, with the culture of the drainage performed 4 days ago positive for Serratia. He will require open drainage of this collection and is awaiting surgical follow- up. He remains on Ciprofloxacin, which should be continued. Suggestion: 1. Await Orthopedic and/or General surgical follow-up for drainage of the left knee fluid collection 2. Continue Ciprofloxacin Dr. Llanos will be covering over the weekend
[2018-05-26 13:49] VITALS: BP 146/84
[2018-05-26 21:43] VITALS: BP 160/108
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
[2018-05-27 06:15] VITALS: BP 176/100
--- NOTE | 2018-05-27 07:02 | Procedure ---
Minor Surgical Procedure Note Date of Procedure: 05/26/18 Procedure Note: I reviewed the CT scan on PACS myself that shows a subcutaneous collection which seems closest to the skin medially around 9:00 while the patient's leg is extended this was with IV contrast, there are subcutaneous vessels near this area as well. This is a bedside procedure With the patient supine I marked the area around 9:00 medially just above the level of this patella based on the CT we prepped the area first and injected local anesthetic which he tolerated very well and then made a vertical 1 cm incision, to avoid the vessels, dissected minimally but deep along with a hemostat to get into the cavity which expressed mostly dark but serous fluid probably close to 150 ML. Then inserted a short length of an iodoform wick to help keep it draining and then covered it with gauze and Kerlix and tape, EBL minimal lap and sponge counts correct wound expectancy infected IV fluids crystalloid complications none patient tolerated the procedure well, I explained to him how to manage the wick is removed gradually over the course of 4 days to not try to repack. I told him my concern that this fluid may accumulate for some time as he heals. Although it seems like it's mostly blunt trauma also need to consider if this possibly has a bursitis component but we'll have to see. NOTE: no pus
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
[2018-05-27 08:34] LABS: ABSOLUTE BASOPHIL COUNT 0.1 /CUMM (0.0-0.2); ABSOLUTE EOSINOPHIL COUNT 0.8 /CUMM (0.0-0.7); ABSOLUTE GRANULOCYTE CT 5.9 /CUMM (1.4-6.5); ABSOLUTE LYMPH COUNT 4.3 /CUMM (1.2-3.4); BASOPHIL % 0.8 % (0.0-2.0); EOSINOPHIL % 5.9 % (0-5); HEMATOCRIT 40.1 % (42-52); MEAN CORPUSCULAR HGB 31.1 PG (27.0-31.0); MEAN CORPUSCULAR HGB CONC 33.1 G/DL (33.0-37.0); MEAN CORPUSCULAR VOLUME 93.9 FL (80.0-94.0); MEAN PLATELET VOLUME 9.2 FL (7.4-10.4); PLATELET COUNT 504 /CUMM (130-400); RBC DISTRIBUTION WIDTH 14.2 % (11.5-14.5); RED BLOOD CELL CT 4.26 /CUMM (4.70-6.10); WHITE BLOOD CELL COUNT 13.1 /CUMM (4.8-10.8)
--- NOTE | 2018-05-27 12:22 | PN- General Surgery ---
Subjective Subjective: PATIENT COMFORTABLE WITHOUT COMPLAINTS Objective Vital Signs and I&Os Vital Signs Date Time Temp Pulse Resp B/P B/P Pulse O2 O2 Flow FiO2 Mean Ox Delivery Rate 05/27 09 88 142/100 05/27 09 88 142/100 05/27 0903 88 142/100 05/27 0615 98.7 72 20 176/100 94 Room Air 05/26 2143 98.5 83 18 160/108 94 05/26 2111 83 160/108 05/26 1349 98.5 75 20 146/84 95 Room Air Intake & Output 05/27 1600 05/27 0800 05/27 0000 05/26 1600 05/26 0805/26 0000 Intake Total 100 100 525 600 Output Total Balance 100 100 525 600 Intake, IV 525 Intake, Oral 100 100 600 Patient 161 lb Weight Physical Exam: VSS, AFEBRILE LEFT MEDIAL THIGH -I+D WICK ADVACNED WITH 30CC SEROSANG FLUID EXPRESSED NEW DRY STERILE DRESSINGS PLACED CALVES SOFT BILATERALLY DISTAL PULSES INTACT Current Medications: Current Medications Sig/Marva Start time Last Medication Dose Route Stop Time Status Admin Amlodipine Besylate 2.5 MG DAILY 05/23 09 AC 05/27 PO 0904 Ciprofloxacin 500 MG Q12 05/22 2100 AC 05/26 PO 05/26 2059 0827 Dextrose/Sodium 1,000 ML Q13H 05/26 06 NV 05/26 Chloride IV 0600 Diclofenac Sodium 75 MG BID PRN 05/22 1515 AC PO Duloxetine HCl 90 MG DAILY 05/23 0900 AC 05/27 PO 0904 Folic Acid 1 MG DAILY 05/22 1337 AC 05/27 PO 0904 Gabapentin 900 MG 0800,1400 05/23 0800 05/27 PO 0708 Gabapentin 1,800 MG AT BEDTIME 05/22 2100 AC 05/26 PO 2111 Heparin Sodium 5,000 UNIT Q8 05/22 1508 DC 05/26 (Porcine) SC 1405 Insulin Aspart 0 TIDAC 05/26 1700 AC 05/26 SC 1734 Insulin Human Regular 0 Q6 05/25 1800 DC 05/26 SC 0552 Lisinopril 60 MG DAILY 05/23 0900 AC 05/27 PO 0903 Metoprolol Tartrate 100 MG BID 05/22 2100 AC 05/27 PO 0904 Multivitamins 1 TAB DAILY 05/22 1337 AC 05/27 PO 0903 Nicotine 14 MG DAILY 05/22 1530 [facility] Oxycodone HCl 20 MG Q6P PRN 05/22 1515 AC 05/27 PO 0707 Thiamine HCl 100 MG DAILY 05/22 1337 AC 05/27 PO 0903 Trazodone HCl 200 MG AT BEDTIME 05/22 2100 AC 05/26 PO 2110 Results Last 48 Hours of Labs: Laboratory Tests 05/27 05/26 0612 0640 Chemistry Sodium (137 - 145 mmol/L) 139 Potassium (3.5 - 5.1 mmol/L) 4.6 Chloride (98 - 107 mmol/L) 101 Carbon Dioxide (22 - 30 mmol/L) 26 Anion Gap (5 - 16) 11 BUN (9 - 20 mg/dL) 12 Creatinine (0.7 - 1.2 mg/dL) 0.6 L Estimated GFR (>60 ml/min) > 60 BUN/Creatinine Ratio (7 - 25 %) 20.0 Coagulation PT (9.4 - 12.5 SEC) 12.0 INR (0.90 - 1.17) 1.10 APTT (25 - 37 SEC) 32 Hematology CBC w Diff NO MAN DIFF REQ NO MAN DIFF REQ WBC (4.8 - 10.8 /CUMM) 13.1 H 15.4 H RBC (4.70 - 6.10 /CUMM) 4.26 L 4.15 L Hgb (14.0 - 18.0 G/DL) 13.3 L 12.9 L Hct (42 - 52 %) 40.1 L 39.7 L MCV (80.0 - 94.0 FL) 93.9 95.7 H MCH (27.0 - 31.0 PG) 31.1 H 31.2 H MCHC (33.0 - 37.0 G/DL) 33.1 32.6 L RDW (11.5 - 14.5 %) 14.2 14.9 H Plt Count (130 - 400 /CUMM) 504 H 495 H MPV (7.4 - 10.4 FL) 9.2 9.1 Gran % (42.2 - 75.2 %) 45.0 41.8 L Lymphocytes % (20.5 - 51.1 %) 32.8 37.5 Monocytes % (1.7 - 9.3 %) 15.5 H 13.1 H Eosinophils % (0 - 5 %) 5.9 H 6.6 H Basophils % (0.0 - 2.0 %) 0.8 1.0 Absolute Granulocytes (1.4 - 6.5 /CUMM) 5.9 6.4 Absolute Lymphocytes (1.2 - 3.4 /CUMM) 4.3 H 5.8 H Absolute Monocytes (0.10 - 0.60 /CUMM) 2.0 H 2.0 H Absolute Eosinophils (0.0 - 0.7 /CUMM) 0.8 1.0 Absolute Basophils (0.0 - 0.2 /CUMM) 0.1 0.2 Assessment/Plan Assessment/Plan S/P BEDSIDE I+D FOR DISTAL MEDIAL THIGH ABSCESS CONTINUE WITH DAILY DRESSING CHANGES WITH WICK ADVANCEMENT CONTINUE ON CIPRO ALPS FOR DVT PROPH OOB-CHAIR Core Measures Venous Thromboembolism VTE Risk Factors Trauma No Mechanical VTE Prophylaxis d/t N/A MechProphylax Ordered No VTE Pharm Prophylaxis d/t NA PharmProphylax ordered
[2018-05-27 14:20] VITALS: BP 120/80
--- NOTE | 2018-05-27 18:11 | PN- Infect Dx ---
Subjective Subjective: This patient is a 52-year-old white male with Serratia in his right knee. The patient underwent surgical debridement but continues to have discomfort. Review of Systems Comments: 12 point review of system and only complains of pain in the knee and right shoulder Objective Last 24 Hrs of Vital Signs/I&O Vital Signs Date Time Temp Pulse Resp B/P B/P Pulse O2 O2 Flow FiO2 Mean Ox Delivery Rate 05/27 1420 98.3 97 22 120/80 83 05/27 0904 88 142/100 05/27 0904 88 142/100 05/27 0903 88 142/100 05/27 0615 98.7 72 20 176/100 94 Room Air 05/26 2143 98.5 83 18 160/108 94 05/26 2111 83 160/108 Intake & Output 05/27 1600 05/27 0800 05/27 0000 Intake Total 100 100 Output Total Balance 100 100 Intake, Oral 100 100 Physical Exam Other Physical Findings: Awake alert oriented 3 Pupils equal and reactive to light and accommodation Neck supple No JVD or lymphadenopathy Lungs clear to auscultation bilaterally Heart regular rate and rhythm S1-S2 Abdomen soft nontender nondistended Right knee with continued discomfort and erythema in the periphery. Results Last 24 Hours of Lab Results: Laboratory Tests 05/27 612 Hematology CBC w Diff NO MAN DIFF REQ WBC (4.8 - 10.8 /CUMM) 13.1 H RBC (4.70 - 6.10 /CUMM) 4.26 L Hgb (14.0 - 18.0 G/DL) 13.3 L Hct (42 - 52 %) 40.1 L MCV (80.0 - 94.0 FL) 93.9 MCH (27.0 - 31.0 PG) 31.1 H MCHC (33.0 - 37.0 G/DL) 33.1 RDW (11.5 - 14.5 %) 14.2 Plt Count (130 - 400 /CUMM) 504 H MPV (7.4 - 10.4 FL) 9.2 Gran % (42.2 - 75.2 %) 45.0 Lymphocytes % (20.5 - 51.1 %) 32.8 Monocytes % (1.7 - 9.3 %) 15.5 H Eosinophils % (0 - 5 %) 5.9 H Basophils % (0.0 - 2.0 %) 0.8 Absolute Granulocytes (1.4 - 6.5 /CUMM) 5.9 Absolute Lymphocytes (1.2 - 3.4 /CUMM) 4.3 H Absolute Monocytes (0.10 - 0.60 /CUMM) 2.0 H Absolute Eosinophils (0.0 - 0.7 /CUMM) 0.8 Absolute Basophils (0.0 - 0.2 /CUMM) 0.1 Last 24 Hours of Alberto Results: No new positive cultures Recent Imaging Studies: No new imaging Assessment/Plan ID Impression: 52-year-old white male with persistent Serratia knee infection. Stable, with temperatures remaining normal and white blood cell count decreasing. The culture is so far negative, possibly secondary to the antibiotics he has received, but this may just represent a noninfected hematoma. He remains on Ciprofloxacin for Serratia, which was isolated from a superficial culture, and this can be continued pending final cultures. Suggestion: 1. Follow-up final culture from the recent aspiration 2. Continue Ciprofloxacin pending above
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
[2018-05-27 21:58] VITALS: BP 170/110
[2018-05-28 06:37] VITALS: BP 144/80
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
[2018-05-28 09:14] LABS: ABSOLUTE BASOPHIL COUNT 0.1 /CUMM (0.0-0.2); ABSOLUTE EOSINOPHIL COUNT 0.9 /CUMM (0.0-0.7); ABSOLUTE GRANULOCYTE CT 7.1 /CUMM (1.4-6.5); ABSOLUTE LYMPH COUNT 5.4 /CUMM (1.2-3.4); ABSOLUTE MONOCYTE COUNT 2.3 /CUMM (0.10-0.60); BASOPHIL % 0.4 % (0.0-2.0); EOSINOPHIL % 5.7 % (0-5); GRANULOCYTE % 45.1 % (42.2-75.2); MEAN CORPUSCULAR HGB 31.2 PG (27.0-31.0); MEAN CORPUSCULAR HGB CONC 32.9 G/DL (33.0-37.0); MEAN CORPUSCULAR VOLUME 94.7 FL (80.0-94.0); MEAN PLATELET VOLUME 9.1 FL (7.4-10.4); PLATELET COUNT 496 /CUMM (130-400); RBC DISTRIBUTION WIDTH 14.3 % (11.5-14.5); RED BLOOD CELL CT 4.54 /CUMM (4.70-6.10); WHITE BLOOD CELL COUNT 15.8 /CUMM (4.8-10.8)
[2018-05-28 13:58] VITALS: BP 116/70
--- NOTE | 2018-05-28 18:29 | PN- Infect Dx ---
Subjective Subjective: This patient is a 52-year-old white male with Serratia in his right knee. The patient underwent surgical debridement but continues to have discomfort, normal Temp and elevated WBC count. Review of Systems Comments: 12 point review of systems positive noted in HPI Objective Last 24 Hrs of Vital Signs/I&O Vital Signs Date Time Temp Pulse Resp B/P B/P Pulse O2 O2 Flow FiO2 Mean Ox Delivery Rate 05/28 1358 99.0 74 20 116/70 95 Room Air 05/28 1002 82 128/90 05/28 1002 82 128/90 05/28 1001 82 128/90 05/28 0800 95 Room Air 05/28 0637 98.0 76 20 144/80 94 Room Air 05/27 2158 98.6 84 20 170/110 95 Room Air 05/27 2106 84 170/110 Intake & Output 05/28 1600 08 0800 07/ 0000 Intake Total 480 100 200 Output Total Balance 480 100 200 Intake, Oral 480 100 200 Physical Exam Other Physical Findings: Awake alert oriented 3 Pupils equal reactive to light and accommodation equal ocular motion Neck supple no JVD no lymphadenopathy Lungs clear to auscultation bilaterally Heart regular rate and rhythm S1-S2 Abdomen soft nontender nondistended No neurologic deficit Wound dressed with minimal erythema on the periphery per reports decreased accumulation. Results Last 24 Hours of Lab Results: Laboratory Tests 05/28 0620 Hematology CBC w Diff NO MAN DIFF REQ WBC (4.8 - 10.8 /CUMM) 15.8 H RBC (4.70 - 6.10 /CUMM) 4.54 L Hgb (14.0 - 18.0 G/DL) 14.1 Hct (42 - 52 %) 43.0 MCV (80.0 - 94.0 FL) 94.7 H MCH (27.0 - 31.0 PG) 31.2 H MCHC (33.0 - 37.0 G/DL) 32.9 L RDW (11.5 - 14.5 %) 14.3 Plt Count (130 - 400 /CUMM) 496 H MPV (7.4 - 10.4 FL) 9.1 Gran % (42.2 - 75.2 %) 45.1 Lymphocytes % (20.5 - 51.1 %) 34.0 Monocytes % (1.7 - 9.3 %) 14.8 H Eosinophils % (0 - 5 %) 5.7 H Basophils % (0.0 - 2.0 %) 0.4 Absolute Granulocytes (1.4 - 6.5 /CUMM) 7.1 H Absolute Lymphocytes (1.2 - 3.4 /CUMM) 5.4 H Absolute Monocytes (0.10 - 0.60 /CUMM) 2.3 H Absolute Eosinophils (0.0 - 0.7 /CUMM) 0.9 Absolute Basophils (0.0 - 0.2 /CUMM) 0.1 Last 24 Hours of Alberto Results: No new cultures Recent Imaging Studies: No new imaging Assessment/Plan ID Impression: 52-year-old white male with persistent Serratia knee infection. Stable, with temperatures remaining normal and white blood cell count persistently elevated. The culture is so far negative, possibly secondary to the antibiotics he has received, but this may just represent a noninfected hematoma. He remains on Ciprofloxacin for Serratia, which was isolated from a superficial culture. Suggestion: 1. No cultures obtained from the recent aspiration 2. Continue Ciprofloxacin
[2018-05-28 22:11] VITALS: BP 128/86
[2018-05-29 03:16] VITALS: BP 126/70
[2018-05-29 06:45] VITALS: BP 160/100
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
[2018-05-29 09:58] LABS: ABSOLUTE BASOPHIL COUNT 0.1 /CUMM (0.0-0.2); ABSOLUTE EOSINOPHIL COUNT 1.4 /CUMM (0.0-0.7); ABSOLUTE GRANULOCYTE CT 7.7 /CUMM (1.4-6.5); ABSOLUTE LYMPH COUNT 4.9 /CUMM (1.2-3.4); ABSOLUTE MONOCYTE COUNT 1.6 /CUMM (0.10-0.60); BASOPHIL % 0.7 % (0.0-2.0); EOSINOPHIL % 8.7 % (0-5); HEMATOCRIT 40.8 % (42-52); MEAN CORPUSCULAR HGB 31.2 PG (27.0-31.0); MEAN CORPUSCULAR HGB CONC 33.2 G/DL (33.0-37.0); MEAN PLATELET VOLUME 8.9 FL (7.4-10.4); PLATELET COUNT 487 /CUMM (130-400); RBC DISTRIBUTION WIDTH 14.4 % (11.5-14.5); RED BLOOD CELL CT 4.35 /CUMM (4.70-6.10); WHITE BLOOD CELL COUNT 15.6 /CUMM (4.8-10.8)
[2018-05-29 11:12] LABS: GRANULOCYTE % 49.2 % (42.2-75.2)
--- NOTE | 2018-05-29 11:30 | PN- Infect Dx ---
Subjective Subjective: Afebrile. He still notes some discomfort in the left knee. Objective Last 24 Hrs of Vital Signs/I&O Vital Signs Date Time Temp Pulse Resp B/P B/P Pulse O2 O2 Flow FiO2 Mean Ox Delivery Rate 05/29 1046 Room Air 05/29 1042 Room Air 05/29 0824 68 160/100 05/29 0824 160/100 05/29 0823 160/100 05/29 0645 98.5 68 20 160/100 92 Room Air 05/29 0316 98.6 95 20 126/70 93 Room Air 05/28 2211 76 128/86 05/28 2028 85 166/110 05/28 1358 99.0 74 20 116/70 95 Room Air Intake & Output 05/29 1600 05/29 0800 05/29 0000 Intake Total 200 Output Total Balance 200 Intake, Oral 200 Physical Exam Other Physical Findings: He appears comfortable in no acute distress Extremities decreased swelling of the left knee, with good range of motion; wick in place with some drainage on the dressing; mild erythema and warmth persist Results Last 24 Hours of Lab Results: Laboratory Tests 05/29 750 Hematology CBC w Diff NO MAN DIFF REQ WBC (4.8 - 10.8 /CUMM) 15.6 H RBC (4.70 - 6.10 /CUMM) 4.35 L Hgb (14.0 - 18.0 G/DL) 13.6 L Hct (42 - 52 %) 40.8 L MCV (80.0 - 94.0 FL) 94.0 MCH (27.0 - 31.0 PG) 31.2 H MCHC (33.0 - 37.0 G/DL) 33.2 RDW (11.5 - 14.5 %) 14.4 Plt Count (130 - 400 /CUMM) 487 H MPV (7.4 - 10.4 FL) 8.9 Gran % (42.2 - 75.2 %) 49.2 Lymphocytes % (20.5 - 51.1 %) 31.1 Monocytes % (1.7 - 9.3 %) 10.3 H Eosinophils % (0 - 5 %) 8.7 H Basophils % (0.0 - 2.0 %) 0.7 Absolute Granulocytes (1.4 - 6.5 /CUMM) 7.7 H Absolute Lymphocytes (1.2 - 3.4 /CUMM) 4.9 H Absolute Monocytes (0.10 - 0.60 /CUMM) 1.6 H Absolute Eosinophils (0.0 - 0.7 /CUMM) 1.4 Absolute Basophils (0.0 - 0.2 /CUMM) 0.1 Last 24 Hours of Alberto Results: No new cultures Assessment/Plan ID Impression: Stable, with temperatures remaining normal but with a persistent leukocytosis, despite repeat drainage (at the bedside) of 150 cc of dark, serous fluid by Surgery 3 days ago, possibly secondary to residual infection within the knee or related to his postsplenectomy state. He remains on Ciprofloxacin for Serratia, isolated from the initial IR procedure 1 week ago as well as the superficial culture sent 13 days ago. Suggestion: 1. Surgical follow-up regarding need for further drainage of his left knee 2. Continue Ciprofloxacin
[2018-05-29 14:42] VITALS: BP 148/92
[2018-05-30 07:02] VITALS: BP 152/100
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
[2018-05-30] MEDS ORDERED: AMLODIPINE BESYL5 M1 PO (07:37)
[2018-05-30] MEDS ORDERED: FOLIC ACID1 M1 PO (07:37)
[2018-05-30] MEDS ORDERED: ONE DAILY MULT1 EAC2 PO (07:37)
[2018-05-30] MEDS ORDERED: VITAMIN B-1100 MG PO (07:37)
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
--- NOTE | 2018-05-30 10:51 | PN- Infect Dx ---
Subjective Subjective: Afebrile without new complaints. He is ambulating well in the hallways. Objective Last 24 Hrs of Vital Signs/I&O Vital Signs Date Time Temp Pulse Resp B/P B/P Pulse O2 O2 Flow FiO2 Mean Ox Delivery Rate 05/30 0918 79 120/90 05/30 0916 79 120/90 05/30 0915 79 120/90 05/30 0800 95 Room Air 05/30 0702 97.9 68 20 152/100 95 Room Air 05/29 2128 83 132/106 05/29 1442 98.1 81 20 148/92 96 Intake & Output 05/30 1600 05/30 0800 05/30 0000 Intake Total 250 100 Output Total Balance 250 100 Intake, Oral 250 100 Physical Exam Other Physical Findings: He appears comfortable in no acute distress Extremities decreased swelling and erythema of the left knee, with increased range of motion; drainage still noted on the dressing, with the wick in place Results Last 24 Hours of Lab Results: No labs today Last 24 Hours of Alberto Results: No recent cultures Assessment/Plan ID Impression: Stable, with temperatures remaining normal but with his white blood cell count yesterday still elevated, possibly related to his post splenectomy state or to a residual infection in the left knee, status post drainage at the bedside of 150 cc of dark, serous fluid by Surgery 4 days ago. He remains on Ciprofloxacin for Serratia, isolated from the initial IR procedure 8 days ago as well as the superficial culture sent 2 weeks ago. Suggestion: 1. Surgical reevaluation of his wound 2. Continue Ciprofloxacin
[2018-05-30 14:39] VITALS: BP 130/90
[2018-05-30 21:29] VITALS: BP 152/90
[2018-05-31 06:22] VITALS: BP 148/88
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
[2018-05-31 15:19] VITALS: BP 138/78
[2018-05-31 21:58] VITALS: BP 160/100
[2018-06-01 06:44] VITALS: BP 148/96
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
[2018-06-01 08:08] VITALS: BP 132/90
[2018-06-01] MEDS ORDERED: HYDROXYZINE HCL25 M2 PO (08:44)
[2018-06-01] MEDS ORDERED: OXYCODONE HCL10 M2 PO (08:44)
[2018-06-01] MEDS ORDERED: LISINOPRIL20 M1 PO (08:44)
[2018-06-01] MEDS ORDERED: NORVASC10 M1 PO (08:44)
--- NOTE | 2018-06-01 09:42 | PN- General Surgery ---
Surgical Brief Attending Note Brief Attending Note: Saw him discussed the continued drainage, it's serous, it's only been 5 days since incision, the inflammation has been there eddie a month, it will take long time to heal. Keep clean and covered, no more interventions indicated at this point.
--- NOTE | 2018-06-01 11:12 | PN- Infect Dx ---
Subjective Subjective: Afebrile. He feels improved with no complaints at this time. Objective Last 24 Hrs of Vital Signs/I&O Vital Signs Date Time Temp Pulse Resp B/P B/P Pulse O2 O2 Flow FiO2 Mean Ox Delivery Rate 06/01 0808 74 132/90 06/01 0807 74 132/90 06/01 0807 74 132/90 06/01 0644 97.5 77 20 148/96 95 Room Air 05/31 2158 98.0 78 20 160/100 98 Room Air 05/31 1519 97.7 68 18 138/78 97 Intake & Output 06/01 1600 06/01 0800 06/01 0000 Intake Total 120 240 Output Total Balance 120 240 Intake, Oral 120 240 Physical Exam Other Physical Findings: He appears comfortable in no acute distress Extremities decreased swelling and erythema of the right knee, with no drainage and no tenderness Results Last 24 Hours of Lab Results: No labs from today Last 24 Hours of Alberto Results: No recent cultures Assessment/Plan ID Impression: Stable, with temperatures remaining normal, and with marked improvement in the inflammation around his right knee, status post drainage at the bedside of 150 cc of dark, serous fluid by Surgery 6 days ago. His white blood cell count, however, remains elevated, possibly secondary to his post splenectomy state. He remains on Ciprofloxacin for Serratia, isolated from the initial IR procedure 10 days ago as well as the superficial culture sent over 2 weeks ago. Suggestion: 1. Repeat CBC 2. Discontinue Ciprofloxacin on June 02 and then follow off antibiotics
[2018-06-01] MEDS ORDERED: CIPRO500 M1 PO (11:27)
[2018-06-01 13:16] LABS: ABSOLUTE BASOPHIL COUNT 0.2 /CUMM (0.0-0.2); ABSOLUTE EOSINOPHIL COUNT 0.9 /CUMM (0.0-0.7); ABSOLUTE GRANULOCYTE CT 9.2 /CUMM (1.4-6.5); ABSOLUTE LYMPH COUNT 4.8 /CUMM (1.2-3.4); ABSOLUTE MONOCYTE COUNT 1.3 /CUMM (0.10-0.60); BASOPHIL % 1.4 % (0.0-2.0); EOSINOPHIL % 5.3 % (0-5); GRANULOCYTE % 56.2 % (42.2-75.2); HEMATOCRIT 40.5 % (42-52); MEAN CORPUSCULAR HGB 30.9 PG (27.0-31.0); MEAN CORPUSCULAR HGB CONC 33.4 G/DL (33.0-37.0); MEAN CORPUSCULAR VOLUME 92.8 FL (80.0-94.0); PLATELET COUNT 451 /CUMM (130-400); RBC DISTRIBUTION WIDTH 14.3 % (11.5-14.5); RED BLOOD CELL CT 4.36 /CUMM (4.70-6.10); WHITE BLOOD CELL COUNT 16.4 /CUMM (4.8-10.8)
== END 2018-06-01 13:27 | DRG 317 ==
LOC: 2NA 12:05 → ENPENDDIS 06-01 11:35 → 2NA 06-01 13:27
PROVIDERS: General Practice; Internal Medicine; Student in an Organized Health Care Education/Training Program
PROC: 0S9D3ZX Drainage of Left Knee Joint, Percutaneous Approach, Diagnostic (ICD-10-PCS; principal; 2018-05-22)
PROC: 0J9P0ZZ Drainage of Left Lower Leg Subcutaneous Tissue and Fascia, Open Approach (ICD-10-PCS; 2018-05-26)
DX: M71.162 Other infective bursitis, left knee (principal); L03.116 Cellulitis of left lower limb; L08.89 Other specified local infections of the skin and subcutaneous tissue; B96.89 Other specified bacterial agents as the cause of diseases classified elsewhere; I10 Essential (primary) hypertension; E11.9 Type 2 diabetes mellitus without complications; Z79.84 Long term (current) use of oral hypoglycemic drugs; F32.9 Major depressive disorder, single episode, unspecified; F19.20 Other psychoactive substance dependence, uncomplicated; F10.20 Alcohol dependence, uncomplicated; S80.02XD Contusion of left knee, subsequent encounter; M84.421S Pathological fracture, right humerus, sequela; B19.20 Unspecified viral hepatitis C without hepatic coma; F12.10 Cannabis abuse, uncomplicated; F11.10 Opioid abuse, uncomplicated; F15.10 Other stimulant abuse, uncomplicated
CPT/HCPCS: 2NAP; 87075; 36592; 82436; J0131; J1644; J1815; J3490; J7042

== ENCOUNTER 2018-06-06 09:17 | Emergency (ER) | payer OTHER ==
[~2018-06-06] VITALS: Ht 167.6 cm; Wt 72.6 kg
[~2018-06-06 09:17] MED LIST changes: +AMLODIPINE BESYL5 M1 PO; +CIPRO500 M1 PO; +CYMBALTA30 M1 PO; +DICLOFENAC SODI75 M2 PO; +FOLIC ACID1 M1 PO; +GABAPENTIN300 M2 PO; +GLUCOPHAGE500 M1 PO; +HYDROXYZINE HCL25 M2 PO; +METOPROLOL TART50 M1 PO; +NICOTINE PATCH1 EAC2 TOP; +NORVASC10 M1 PO; +NORVASC2.5 M1 PO; +ONE DAILY MULT1 EAC2 PO; +OXYCODONE HCL10 M2 PO; +OXYCODONE HCL5 M1 PO; +TRAZODONE HCL50 M1 PO; +VITAMIN B-1100 MG PO
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
[2018-06-06 10:13] LABS: ABSOLUTE BASOPHIL COUNT 0 /CUMM (0.0-0.2); ABSOLUTE EOSINOPHIL COUNT 0.1 /CUMM (0.0-0.7); ABSOLUTE GRANULOCYTE CT 8.3 /CUMM (1.4-6.5); ABSOLUTE LYMPH COUNT 3.5 /CUMM (1.2-3.4); ABSOLUTE MONOCYTE COUNT 1.2 /CUMM (0.10-0.60); BASOPHIL % 0.2 % (0.0-2.0); EOSINOPHIL % 0.5 % (0-5); GRANULOCYTE % 63.8 % (42.2-75.2); MEAN CORPUSCULAR HGB 30.5 PG (27.0-31.0); MEAN CORPUSCULAR HGB CONC 33.1 G/DL (33.0-37.0); MEAN PLATELET VOLUME 8.6 FL (7.4-10.4); PLATELET COUNT 439 /CUMM (130-400); RBC DISTRIBUTION WIDTH 14.6 % (11.5-14.5); RED BLOOD CELL CT 4.45 /CUMM (4.70-6.10); WHITE BLOOD CELL COUNT 13.1 /CUMM (4.8-10.8)
--- NOTE | 2018-06-06 16:52 | ED PSYCH CRISIS CONSULTATION ---
See Addendum Crisis Consult Basic Assessment Date of Consult: 06/06/18 Responsible Person/Accompanied By: came in alone Insurance Authorization: Insurance #1: Insurance name: NICOLAS MENESES Phone number: Policy number: [id number] Group number: Authorization number: ED Provider: Patient's ED Provider: Joelle Emanuel Primary Care Physician: Patient's PCP: Patient Has No Primary Care Dr PCP's Phone Number: Current Psychiatrist: denies Chief Complaint: ETOH/Drug Related Complaint Patient's Quote: "I need to get my life together" Present Illness: Pt is a 52 year old male who was admitted to [facility] in 05/08, then transferred to the medical floor due to knee pain and infection. He was accepted to a SNF and he was hard to place, it is my understanding the pt was discharged from the medical floor per his request with the expectation he "his Father would break, and he would let me stay there" his Father refused to be a support, and the patient was not able to care for his knee. He relapsed on alcohol, although he is scoring a 0 on his CIWA and his BAL upon admission was negative. His tox screen is positive for cannabis. Pt has been homeless for many years, and has made ends meet by [employer]. Pt states "I want to get my life together", he mentions he would like to do a drug treatment 30 day program. I review what was written in triage, in terms of "going downstairs", he states "I just need to get my life together", I'll do whatever. He denies current si/hi/ah/vh, he has a low threshold for obstacles but is agreeable to staying the night so we can explore all disposition options in the morning. Pt has had one previous si attempt when under the influence of LSD, he often becomes hopeless, helpless in terms of lack of housing and poor decision making i.e. not following treatment recommendations outside of facilities. CSSRS completed. Patient's Address: [place] [id number] Other Phone Number: Who Do You Live With? Patient/Self Family/Informants Interviewed: no supports/ Father will not engage in treatment Allergies - Coded Allergies: NO KNOWN ALLERGIES (NONE 05/05/18) Current Medications - Scheduled Medications Amlodipine Besylate (Norvasc) 10 MG TABLET 10 MG PO DAILY HYPERTENSION #30 TAB Prescribed by Maisha Brito MD on 06/01/18 Ciprofloxacin HCl (Cipro) 500 MG TABLET 500 MG PO Q12 INFECTION KNEE #3 TAB Prescribed by Maisha Brito MD on 06/01/18 Diclofenac Sodium 75 MG TABLET.DR 75 MG PO BID pain #60 TAB Prescribed by Manjit Cristina MD on 05/22/18 Duloxetine Hydrochloride (Cymbalta) 30 MG CAPSULE.DR 90 MG PO DAILY depression #30 CAP Prescribed by Manjit Cristina MD on 05/22/18 Gabapentin 300 MG CAPSULE 1,800 MG PO AT BEDTIME anxiety/pain #30 CAP Prescribed by Manjit Cristina MD on 05/22/18 Gabapentin 300 MG CAPSULE 900 MG PO 0800,1400 anxiety #30 CAP Prescribed by Manjit Cristina MD on 05/22/18 Lisinopril 20 MG TABLET 60 MG PO DAILY HYPERTENSION #30 TAB Prescribed by Maisha Brito MD on 06/01/18 Metformin Hydochloride (Glucophage) 500 MG TABLET 500 MG PO 0800,1700 DM #30 TAB Prescribed by Manjit Cristina MD on 05/22/18 Metoprolol Tartrate 50 MG TABLET 100 MG PO BID hypertension #10 TAB Prescribed by Manjit Cristina MD on 05/22/18 Trazodone HCl 50 MG TABLET 200 MG PO AT BEDTIME insomnia #30 TAB Prescribed by Manjit Cristina MD on 05/22/18 Scheduled PRN Medications Hydroxyzine Hydrochloride (Atarax) 25 MG TAB 25 MG PO 4 TIMES/DAY PRN ANXIETY/ AGITATION/INSOMNIA #20 TAB Prescribed by Maisha Brito MD on 06/01/18 Oxycodone HCl 10 MG TABLET 20 MG PO Q6-PRN PRN PAIN SCALE 4-6 (MODERATE) #16 TAB Prescribed by Maisha Brito MD on 06/01/18 Discontinued Medications Lisinopril 20 MG TABLET 60 MG PO DAILY HTN #10 TAB Discontinued reason: Changed Dose Oxycodone HCl 5 MG TABLET 20 MG PO Q6P PRN PAIN SCALE 7-10 (SEVERE) #20 TAB Discontinued reason: Per Doctor Decision Laboratory Results: Laboratory Tests 06/06/18 1005: Anion Gap 15, Estimated GFR > 60, BUN/Creatinine Ratio 23.8, Glucose 182 H, Calcium 9.6, Total Bilirubin 0.8, AST 107 H, ALT 87 H, Alkaline Phosphatase 108, Total Protein 8.5 H, Albumin 3.9, Globulin 4.6 H, Albumin/Globulin Ratio 0.8 L, CBC w Diff NO MAN DIFF REQ, RBC 4.45 L, MCV 92.0, MCH 30.5, MCHC 33.1, RDW 14.6 H, MPV 8.6, Gran % 63.8, Lymphocytes % 26.6, Monocytes % 8.9, Eosinophils % 0.5, Basophils % 0.2, Absolute Granulocytes 8.3 H, Absolute Lymphocytes 3.5 H, Absolute Monocytes 1.2 H, Absolute Eosinophils 0.1, Absolute Basophils 0, Serum Alcohol < 10.0 06/06/18 0944: Urine Opiates Screen 186, Methadone Screen 44, Barbiturate Screen < 60, Ur Phencyclidine Scrn < 6.00, Amphetamines Screen < 100, U Benzodiazepines Scrn < 85, Urine Cocaine Screen 272, Urine Cannabis Screen > 80.00 H Past History Past Medical History Neurological: NONE EENT: NONE Cardiovascular: hypertension Respiratory: asthma, bronchitis Gastrointestinal: alcoholic hepatitis Hepatic: cirrhosis, hepatitis C Renal: NONE Musculoskeletal: falls Psychiatric: alcohol dependence, Cannabis use disorder, amphetamine use disorder (meth) Endocrine: DIABETIC Blood Disorders: NONE Cancer(s): NONE 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 Physical Limitations (Interventions): Pt has an injured knee and shoulder. Psychiatric Treatment History Psych Treatment Psychiatric Treatment Yes Inpatient Treatment Yes Outpatient Treatment No Location of Treatment [facility] Diagnosis by History: Unspecified depressive d/o alcohol use disorder, severe cannabis use disorder, moderate Amphetamine use disorder, moderate Chart history of Schizophrenia and Bipolar Disorder. Antisocial personality disorder Substance Use/Abuse History Drug Use/Abuse 1 Substances Used/Abused Yes Substance Used/Abused Alcohol Drug Use/Abuse 2 Substances Used/Abused Yes Substance Used/Abused Marijuana Drug Use/Abuse 3 Substances Used/Abused Yes Substance Abuse Treatment Substance Abuse Treatment Past Substance Abuse [place] No Current Mental Status Mental Status Orientation: Person, Place, Situation Affect: Flat, Lonely, Sad Speech: WNL Neuro-vegetative: Energy Decreased, Helpless, Sleep Disturbance Appearance Appearance- Dress/Hygiene: unkempt Behaviors Thought Process: WNL Memory: WNL Insight: Fair SI/HI Risk Assessment Past Suicidal Ideation/Attempts Yes Current Suicidal Ideation/Att No Past Homicidal Ideation/Att: Yes Current Homicidal Ideation/Attempts No Degree of Intent: Self Destructive/No Gravely Disabled: Poor Impulse Control, Poor Judgment Risk Factors: isolate/no social support, male Lethality Ratin PTSD Checklist PTSD Done? patient declined ED Management Sitter: Yes Restraints: No DSM5/PS Stressors/Medical Prob Diagnosis' (DSM 5, Stressors, Medical): F32.9 Unspecified Depression D/O F10.20 Alcohol Use D/O Severe F12.20 Cannabis Use D/O Moderate knee pain homelessness, failure to gain stability Current GAF: 30 Departure Disposition Psych Medical Clearance Date: 06/06/18 Medically Cleared at: 1630 Time Started: 1630 Time Ended: 1730 Psychiatrist Consulted: Dr. Orozco Date Disposition Established: 06/06/18 Time Disposition Established: 1729 Plan for Disposition - Modality: Hold Over/ re eval Follow-up Appt Date: 06/06/18 Rationale for Disposition: Pt does not meet criteria for inpatient hospitialization, case reviewed with Dr. Orozco pt is requesting "terminal makeup operator treatment", pt was also approved for a SNF. Pt remains homeless, and without community resources. Referrals Patient Has No Primary Care Dr (PCP/Family)
[2018-06-07 08:19] LABS: ABSOLUTE BASOPHIL COUNT 0 /CUMM (0.0-0.2); ABSOLUTE EOSINOPHIL COUNT 0.3 /CUMM (0.0-0.7); ABSOLUTE GRANULOCYTE CT 5.3 /CUMM (1.4-6.5); ABSOLUTE LYMPH COUNT 3.5 /CUMM (1.2-3.4); ABSOLUTE MONOCYTE COUNT 1.2 /CUMM (0.10-0.60); BASOPHIL % 0.2 % (0.0-2.0); EOSINOPHIL % 3.3 % (0-5); GRANULOCYTE % 51.1 % (42.2-75.2); HEMATOCRIT 42.3 % (42-52); MEAN CORPUSCULAR HGB 30.5 PG (27.0-31.0); MEAN CORPUSCULAR VOLUME 92.4 FL (80.0-94.0); MEAN PLATELET VOLUME 8.7 FL (7.4-10.4); PLATELET COUNT 412 /CUMM (130-400); RBC DISTRIBUTION WIDTH 14.7 % (11.5-14.5); RED BLOOD CELL CT 4.58 /CUMM (4.70-6.10); WHITE BLOOD CELL COUNT 10.5 /CUMM (4.8-10.8)
--- NOTE | 2018-06-07 16:38 | ED PSYCHIATRIST/APRN CONSULT ---
Psychiatrist/INBOUND CALL CENTER REPRESENTATIVE ED Consult Assessment and Plan: Psychiatric Consultation Date of Consultation: 06/07/2018 Reason for Consultation: Risk Assessment, Disposition, and also pt. > 24 in the Crisis Intervention area Findings: Psychiatric History (past and present) as per the notes of Swedger, Bhavna Forman LCSW, dated yesterday (06/06/18): "Pt. is a 52-year-old male who was admitted to [facility] in 05/08, then transferred to the medical floor due to knee pain and infection. He was accepted to a SNF and he was hard to place, pt was discharged from the medical floor per his request with the expectation that his Father would break, and he would let me stay there ", his Father refused to allow patient to stay with him. He claimed that he relapsed to alcohol, although he is scoring a 0 on his CIWA and his BAL upon admission was negative. His tox screen is positive for cannabis. Pt has been homeless for many years, and has made ends meet by [email or web address]. Pt states "I want to get my life together", he mentions he would like to do a drug treatment 30 day program. I review what was written in triage, in terms of "going downstairs", he states "I just need to get my life together", I'll do whatever. He denies current si/hi/ah/vh, he has a low threshold for obstacles but is agreeable to staying the night so we can explore all disposition options in the morning. Pt has had one previous si attempt when under the influence of LSD, he often becomes hopeless, helpless in terms of lack of housing and poor decision making i.e. not following treatment recommendations outside of facilities." Addenda by psychiatrist on-call, Dr. Liu Amen: "Pt known to typewriter assembler from Psychiatric Consult to Medicine last week. Case reviewed in detail with Crisis SW, concur with assessment and plan with the following additions. In brief, pt is 52-year-old male with history of alcoholism, HTN, hep C, alcoholic hepatitis, diabetes presents emergency department complaining of worsening depression and SI, however pt states this is most likely situational d/t homelessness. Pt thought he would be able to go to his father's house, but this plan fell through. Pt requesting [facility] admission for housing, shower and food. Pt was previously approved for [facility] prior to hospital discharge. Pt denies SI/HI/AVH/SIB currently, so ssx withdrawal. Pt in agreement with ED hold overnight with search for rehab bed search in morning. Continue home meds." There is a discrepancy/inconsistency regarding the presence of suicidal ideation. It seems that pt. reported to Triage that he wanted detoxification, wanted to go downstairs ([facility] where he was for an extended time), and mentioned SI to triage but denied it when interviewed by COMMUNITY PROGRAM ASSISTANT Bhavna Noe. Dr. Orozco mentioned that pt. denies SI but may have been a reference to COMMUNITY PROGRAM ASSISTANT report. " Mental State: complaining of Rt. Shoulder pain and asking for pain medication Gustavo was alert and oriented to time + place + person He is talkative but coherent, reported feeling depressed and frustrated but denied thoughts of suicide, He denied thoughts of violence or homicide towards his father, sister, or anyone else, He denied hallucinations, denied feeling paranoid, and there were no delusions during the interview He was calm, cooperative, alert, and did not exhibit abnormal or bizarre behaviors Assessment: Gustavo Soto is a 52-year-old Single White Male who was admitted to the Inpatient psychiatric unit at [facility] on 05/02/2018 because of vague suicidal statements as well as wishing on his father and sister. he was transfered to the medical floor because of an infection above his left knee. He returned to ED 06/05/2018 reporting need for detoxification and --reportedly-- voiced thoughts of suicide. He was re-evaluated 06/06 and 06/07 and did not have thoughts of suicide those 2 days Recommendations: Patient may be discharged if he so desires Pt. may stay overnight if he so desires Resume Cymbalta at 60 mg daily Add PRN Add PRN Oxycodone for shoulder pain Resume Gabapentin Reduse Trazodone to 150 mg at bedtime
[2018-06-08] MEDS ORDERED: CYCLOBENZAPRINE10 M1 PO (07:50)
[2018-06-08] MEDS ORDERED: CYMBALTA30 M1 PO (07:50)
[2018-06-08] MEDS ORDERED: TRAZODONE HCL150 M1 PO (07:50)
[2018-06-08 08:15] VITALS: BP 128/74
== END 2018-06-08 08:34 ==
LOC: ERH 09:17
PROVIDERS: Physician Assistant; Student in an Organized Health Care Education/Training Program
DX: R45.851 Suicidal ideations (principal); F10.20 Alcohol dependence, uncomplicated
CPT/HCPCS: 80307; G0463; G0480

== ENCOUNTER 2018-06-28 20:29 | Emergency (ER) | payer OTHER ==
[~2018-06-28 20:29] MED LIST changes: +CYCLOBENZAPRINE10 M1 PO; +TRAZODONE HCL150 M1 PO
[2018-06-28 21:51] LABS: ABSOLUTE BASOPHIL COUNT 0.1 /CUMM (0.0-0.2); ABSOLUTE EOSINOPHIL COUNT 0.2 /CUMM (0.0-0.7); ABSOLUTE GRANULOCYTE CT 5.3 /CUMM (1.4-6.5); BASOPHIL % 0.7 % (0.0-2.0); EOSINOPHIL % 1.6 % (0-5); GRANULOCYTE % 42.1 % (42.2-75.2); HEMATOCRIT 42.4 % (42-52); MEAN CORPUSCULAR HGB 30.1 PG (27.0-31.0); MEAN CORPUSCULAR HGB CONC 33.5 G/DL (33.0-37.0); MEAN CORPUSCULAR VOLUME 89.8 FL (80.0-94.0); MEAN PLATELET VOLUME 8.8 FL (7.4-10.4); PLATELET COUNT 374 /CUMM (130-400); RBC DISTRIBUTION WIDTH 14.9 % (11.5-14.5); RED BLOOD CELL CT 4.73 /CUMM (4.70-6.10); WHITE BLOOD CELL COUNT 12.6 /CUMM (4.8-10.8)
--- NOTE | 2018-06-28 21:59 | ED PSYCHIATRIC COMPLAINT ---
History of Present Illness General Chief Complaint: Psychiatric Related Complaint Stated Complaint: +SI, ETOH Source: patient, old records, EMS Exam Limitations: no limitations Vital Signs & Intake/Output Vital Signs & Intake/Output Vital Signs Date Time Temp Pulse Resp B/P B/P Pulse O2 O2 Flow FiO2 Mean Ox Delivery Rate 06/29 1746 98.6 64 18 134/79 90 / 1431 96 Room Air 06/29 1358 98.5 70 20 118/70 98 Room Air 06/29 1206 97.7 65 20 105/59 97 Room Air 06/29 0930 98.1 66 20 124/66 97 Room Air / 0803 97.8 76 18 145/101 08/09 0803 97.8 76 18 145/101 / 0803 97.8 76 18 145/101 / 0802 97.8 76 18 145/101 96 / 0511 Room Air 06/29 0157 Room Air 06/28 2255 86 132/86 06/28 2209 Room Air 06/28 2153 98.5 86 18 132/86 95 ED Intake and Output 06/29 0000 06/28 1200 Intake Total 200 Output Total Balance 200 Intake, Oral 200 Allergies Coded Allergies: NO KNOWN ALLERGIES (NONE 05/05/18) Reconcile Medications Amlodipine Besylate (Norvasc) 10 MG TABLET 10 MG PO DAILY HYPERTENSION Ciprofloxacin HCl (Cipro) 500 MG TABLET 500 MG PO Q12 INFECTION KNEE TAKE ONE THE NIGHT OF DISCHARGE TAKE ONE IN AM 06/02 AND ONE IN PM 06/02 AND THEN STOP Cyclobenzaprine HCl 10 MG TABLET 1 TAB PO Q8P PAIN OR SPASM Diclofenac Sodium 75 MG TABLET. 75 MG PO BID pain Duloxetine Hydrochloride (Cymbalta) 30 MG CAPSULE.DR 90 MG PO DAILY depression Duloxetine Hydrochloride (Cymbalta) 30 MG CAPSULE. 1 CAP PO DAILY DEPRESSION Gabapentin 300 MG CAPSULE 1,800 MG PO AT BEDTIME anxiety/pain Gabapentin 300 MG CAPSULE 900 MG PO 0800,1400 anxiety Hydroxyzine Hydrochloride (Atarax) 25 MG TAB 25 MG PO 4 TIMES/DAY PRN ANXIETY/ AGITATION/INSOMNIA Lisinopril 20 MG TABLET 60 MG PO DAILY HYPERTENSION Metformin Hydochloride (Glucophage) 500 MG TABLET 500 MG PO 0800,1700 DM Metoprolol Tartrate 50 MG TABLET 100 MG PO BID hypertension Oxycodone HCl 10 MG TABLET 20 MG PO Q6-PRN PRN PAIN SCALE 4-6 (MODERATE) Trazodone HCl 50 MG TABLET 200 MG PO AT BEDTIME insomnia Trazodone HCl 150 MG TABLET 1 TAB PO QPM DEPRESSION Triage Note: BIBA FOR +SI, ALSO WITH ETOH AND POSSIBLE DRUG USE. AMBULANCE WAS ON A CALL WHEN PT WALKED UP TO EMS [facility] AND TOLD THEM HE WANTED TO HURT HIMSELF AND OTHERS. ADMITTED TO ETOH AND DRUG USE BUT THEN RECANTED DRUG USE. PT ARRIVED TO ED AWAKE, UNSTEADY GAIT, SLURRED SPEECH. PT ALTERNATING BETWEEN BEING UNCOOPERATIVE THEN TEARFUL. PT WANDED AND NOW IN BATHROOM, GETTING CHANGED INTO SCRUBS. Triage Nurses Notes Reviewed? yes Onset: Just prior to arrival Duration: hour(s):, constant, continues in ED Timing: recent history Severity: moderate, severe Associated Symptoms: impaired concentration, suicidal ideation HPI: Prior to admission after drinking alcohol patient became suicidal despondent over the of his sister. He is alcoholic and homeless. He reports he is noncompliant with his medications. He denies fever chills nausea vomiting diarrhea abdominal pain chest pain shortness breath headache dysuria rash bleeding. (Kuldeep Dolan MD) Past History Medical History Any Pertinent Medical History? 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 Relation not specified for: FH: CAD (coronary artery disease) Hx Contributory? No (Kuldeep Dolan MD) Review of Systems Review of Systems Constitutional: Reports: no symptoms. EENTM: Reports: no symptoms. Respiratory: Reports: no symptoms. Cardiovascular: Reports: no symptoms. GI: Reports: no symptoms. Genitourinary: Reports: no symptoms. Musculoskeletal: Reports: no symptoms. Skin: Reports: no symptoms. Neurological/Psychological: Reports: see HPI, anxiety, cognitive dysfunction. Hematologic/Endocrine: Reports: no symptoms. Immunologic/Allergic: Reports: no symptoms. All Other Systems: Reviewed and Negative (Kuldeep Dolan MD) Physical Exam Physical Exam General Appearance: well developed/nourished, alert, awake, anxious, comfortable , obese Head: atraumatic, normal appearance Eyes: Bilateral: normal appearance, PERRL, EOMI. 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 yes 1 Age <19 or >45 years? yes 1 Depression/Hopelessness? yes 2 Previous Attempts/Psych Care yes 1 Excessive Ethanol/Drug Use? yes 1 Rational Thinking Loss? yes 2 Single//? yes 1 Social Support? has no support 1 Stated Future Intent? yes 2 Total 12 SAD PERSONS Done? yes (Kuldeep Dolan MD) Progress Differential Diagnosis: drug intoxication, drug overdose, drug withdrawal, electrolyte abnormality, hypoglycemia Plan of Care: Orders Procedure Date/time Status Regular Diet 06/29 B Active Continuous Observation Monitor 06/29 450 Active Continuous Observation Monitor 06/29 50 Active Continuous Observation Monitor 06/28 2055 Active CIWA 06/28 2055 Active URINE DRUG SCREEN FOR ER ONLY 06/28 2055 Complete ETHANOL 06/28 2055 Complete COMPREHENSIVE METABOLIC PANEL 06/28 2055 Complete CBC WITHOUT DIFFERENTIAL 06/28 2055 Complete Current Medications Sig/Marva Start time Last Medication Dose Stop Time Status Admin Gabapentin 1,800 MG AT BEDTIME 06/29 2100 UNVr (Neurontin) Trazodone HCl 200 MG AT BEDTIME 06/29 2100 UNVr (Desyrel) Amlodipine Besylate 10 MG DAILY 06/29 900 UNVr 06/29 (Norvasc) 08 Duloxetine HCl 90 MG DAILY 06/29 900 UNVr 06/29 (Cymbalta) 08 Lisinopril 60 MG DAILY 06/29 900 UNVr 06/29 (Prinivil) 08 Gabapentin 900 MG 0800,1400 06/29 08 UNVr 06/29 (Neurontin) 1428 Metformin HCl 500 MG 0800,1700 06/29 08 UNVr 06/29 (Glucophage) 180 Metoprolol Tartrate 100 MG BID 06/28 2154 UNVr 06/29 (Lopressor) 08 Laboratory Tests 06/29/18 0801: Urine Opiates Screen 180, Methadone Screen 80, Barbiturate Screen < 60, Ur Phencyclidine Scrn < 6.00, Amphetamines Screen < 100, U Benzodiazepines Scrn < 85, Urine Cocaine Screen 141, Urine Cannabis Screen > 80.00 H 06/28/182121: Anion Gap 17 H, Estimated GFR > 60, BUN/Creatinine Ratio 15.7, Glucose 207 H, Calcium 9.3, Total Bilirubin 0.3, AST 283 H, ALT 186 H, Alkaline Phosphatase 120, Total Protein 8.6 H, Albumin 4.2, Globulin 4.4 H, Albumin/Globulin Ratio 1.0 L, CBC w Diff NO MAN DIFF REQ, RBC 4.73, MCV 89.8, MCH 30.1, MCHC 33.5, RDW 14.9 H, MPV 8.8, Gran % 42.1 L, Lymphocytes % 47.6, Monocytes % 8.0, Eosinophils % 1.6, Basophils % 0.7, Absolute Granulocytes 5.3, Absolute Lymphocytes 6.0 H, Absolute Monocytes 1.0 H, Absolute Eosinophils 0.2, Absolute Basophils 0.1, Serum Alcohol 236.0 Hand-Off Endorsed To: Belen MCCOY,Cirilo Tompkins Endorsed Time: 0700 Pending: consult, labs (utox) (Kuldeep Dolan MD) Comments: 06/29/2018 7:17:40 AM patient signed out to me by 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 06/29/2018 6:23:02 PM I have reevaluated Gustavo who has declined evaluation for alcohol detox. He does not recall the situation regarding his arrival to the emergency department but he currently denies suicide ideation. He did state that he wished "his father were " but states he has no intention of harming his father either. He does not live with his father currently. 06/29/2018 7:59:11 PM patient signed out to Dr. 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 (Belen MCCOY,Cirilo Tompkins) Departure Departure Disposition: STILL A PATIENT Condition: Stable Clinical Impression Primary Impression: Alcohol intoxication delirium Secondary Impressions: Depression with suicidal ideation Referrals: Patient Has No Primary Care Dr (PCP/Family) Departure Forms: Customer Survey General Discharge Information (Ranjan MCCOY,Kuldeep)
[2018-06-30 08:06] VITALS: BP 101/62
== END 2018-06-30 08:08 ==
LOC: ERH 20:29
PROVIDERS: Emergency Medicine
DX: F10.121 Alcohol abuse with intoxication delirium (principal); F32.9 Major depressive disorder, single episode, unspecified; R45.851 Suicidal ideations
CPT/HCPCS: 80307; 96372; G0480; J1200; J1630

== ENCOUNTER 2018-07-06 20:05 | Emergency (ER) | payer OTHER ==
[2018-07-06 20:51] LABS: ABSOLUTE BASOPHIL COUNT 0.1 /CUMM (0.0-0.2); ABSOLUTE EOSINOPHIL COUNT 0.1 /CUMM (0.0-0.7); ABSOLUTE GRANULOCYTE CT 6.3 /CUMM (1.4-6.5); ABSOLUTE LYMPH COUNT 6.7 /CUMM (1.2-3.4); ABSOLUTE MONOCYTE COUNT 1.2 /CUMM (0.10-0.60); BASOPHIL % 0.7 % (0.0-2.0); GRANULOCYTE % 43.5 % (42.2-75.2); HEMATOCRIT 44.8 % (42-52); MEAN CORPUSCULAR HGB 30.1 PG (27.0-31.0); MEAN CORPUSCULAR HGB CONC 33.2 G/DL (33.0-37.0); MEAN CORPUSCULAR VOLUME 90.6 FL (80.0-94.0); MEAN PLATELET VOLUME 8.5 FL (7.4-10.4); PLATELET COUNT 339 /CUMM (130-400); RBC DISTRIBUTION WIDTH 15.5 % (11.5-14.5); RED BLOOD CELL CT 4.94 /CUMM (4.70-6.10); WHITE BLOOD CELL COUNT 14.4 /CUMM (4.8-10.8)
--- NOTE | 2018-07-07 00:29 | ED PSYCHIATRIC COMPLAINT ---
History of Present Illness General Chief Complaint: Psychiatric Related Complaint Stated Complaint: HI,SI Source: patient, old records, EMS Exam Limitations: clinical condition, intoxication Vital Signs & Intake/Output Vital Signs & Intake/Output Vital Signs Date Time Temp Pulse Resp B/P B/P Pulse O2 O2 Flow FiO2 Mean Ox Delivery Rate 07/07 0550 98.3 94 18 147/92 97 Room Air 07/06 2050 98.5 105 18 131/71 99 Room Air 07/06 2049 Room Air ED Intake and Output 07/07 0000 07/06 1200 Intake Total 0 Output Total Balance 0 Intake, Oral 0 Allergies Coded Allergies: NO KNOWN ALLERGIES (NONE 05/05/18) Reconcile Medications Amlodipine Besylate (Norvasc) 10 MG TABLET 10 MG PO DAILY HYPERTENSION Ciprofloxacin HCl (Cipro) 500 MG TABLET 500 MG PO Q12 INFECTION KNEE TAKE ONE THE NIGHT OF DISCHARGE TAKE ONE IN AM 06/02 AND ONE IN PM 06/02 AND THEN STOP Cyclobenzaprine HCl 10 MG TABLET 1 TAB PO Q8P PAIN OR SPASM Diclofenac Sodium 75 MG TABLET.DR 75 MG PO BID pain Duloxetine Hydrochloride (Cymbalta) 30 MG CAPSULE.DR 90 MG PO DAILY depression Duloxetine Hydrochloride (Cymbalta) 30 MG CAPSULE.DR 1 CAP PO DAILY DEPRESSION Gabapentin 300 MG CAPSULE 1,800 MG PO AT BEDTIME anxiety/pain Gabapentin 300 MG CAPSULE 900 MG PO 0800,1400 anxiety Hydroxyzine Hydrochloride (Atarax) 25 MG TAB 25 MG PO 4 TIMES/DAY PRN ANXIETY/ AGITATION/INSOMNIA Lisinopril 20 MG TABLET 60 MG PO DAILY HYPERTENSION Metformin Hydochloride (Glucophage) 500 MG TABLET 500 MG PO 0800,1700 DM Metoprolol Tartrate 50 MG TABLET 100 MG PO BID hypertension Oxycodone HCl 10 MG TABLET 20 MG PO Q6-PRN PRN PAIN SCALE 4-6 (MODERATE) Trazodone HCl 50 MG TABLET 200 MG PO AT BEDTIME insomnia Trazodone HCl 150 MG TABLET 1 TAB PO QPM DEPRESSION Triage Note: 52M BIBA FROM POLICE STATION FOR +SI/+HI WITHOUT IDENTIFIED OR SPECIFIED PLAN FOR EITHER. 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 PT WELL KNOWN TO ED AND SEEN HERE FOR SAME ON Jun. ARRIVES INTOXICATED, LOUD, BELIGERANT AND MAKING DEMANDS TO CALL HIS SON. ABLE TO REDIRECT MOST BEHAVIORS. SECURITY PRESENT FOR WANDING ON ARRIVAL AND CHANGING. Triage Nurses Notes Reviewed? yes Onset: Just prior to arrival Duration: constant, continues in ED Timing: recent history Severity: moderate, severe Associated Symptoms: anxiety, impaired concentration, suicidal ideation HPI: The patient is homeless and was found in an elementary school intoxicated. He told the police he was suicidal or homicidal without specific plans. He is noncompliant with his medications. He denies fever chills nausea vomiting diarrhea abdominal pain chest pain shortness breath headache dysuria rash bleeding. He is hostile to staff and agitated requiring chemical sedation. (Kuldeep Woodruff MD) Past History Travel History Traveled to [place] past 21 day No Medical History Any Pertinent Medical History? 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 Relation not specified for: FH: CAD (coronary artery disease) Hx Contributory? No (Kuldeep Woodruff MD) Review of Systems Review of Systems Constitutional: Reports: no symptoms. EENTM: Reports: no symptoms. Respiratory: Reports: no symptoms. Cardiovascular: Reports: no symptoms. GI: Reports: no symptoms. Genitourinary: Reports: no symptoms. Musculoskeletal: Reports: no symptoms. Skin: Reports: no symptoms. Neurological/Psychological: Reports: see HPI, anxiety, cognitive dysfunction, confusion, emotional problems. Hematologic/Endocrine: Reports: no symptoms. Immunologic/Allergic: Reports: no symptoms. All Other Systems: Reviewed and Negative (Kuldeep Woodruff MD) Physical Exam Physical Exam General Appearance: well developed/nourished, alert, awake, anxious, severe distress Head: atraumatic, normal appearance Eyes: Bilateral: normal appearance, PERRL, EOMI. 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 yes 1 Age <19 or >45 years? yes 1 Depression/Hopelessness? yes 2 Previous Attempts/Psych Care yes 1 Excessive Ethanol/Drug Use? yes 1 Rational Thinking Loss? yes 2 Single//? yes 1 Social Support? has no support 1 Stated Future Intent? yes 2 Total 12 SAD PERSONS Done? yes (Ranjan MCCOY,Kuldeep) Progress Differential Diagnosis: drug intoxication, drug overdose, drug withdrawal, electrolyte abnormality, hypoglycemia Plan of Care: Orders Procedure Date/time Status Regular Diet 07/07 B Active URINE DRUGS OF ABUSE 07/07 07 Active ED CRISIS PSYCH CONSULT 07/07 0601 Active Continuous Observation Monitor 07/07 0425 Active Continuous Observation Monitor 07/07 0025 Active Continuous Observation Monitor 07/06 2026 Active ETHANOL 07/06 2026 Complete COMPREHENSIVE METABOLIC PANEL 07/06 2026 Complete CBC WITHOUT DIFFERENTIAL 07/06 2026 Complete Laboratory Tests 07/07/18 0816: Urine Opiates Screen Pending, Methadone Screen Pending, Barbiturate Screen Pending, Ur Phencyclidine Scrn Pending, Amphetamines Screen Pending, U Benzodiazepines Scrn Pending, Urine Cocaine Screen Pending, Urine Cannabis Screen Pending 07/06/182043: Anion Gap 16, Estimated GFR > 60, BUN/Creatinine Ratio 17.1, Glucose 205 H, Calcium 9.5, Total Bilirubin 0.7, AST 218 H, ALT 141 H, Alkaline Phosphatase 104, Total Protein 8.5 H, Albumin 4.2, Globulin 4.3 H, Albumin/Globulin Ratio 1.0 L, CBC w Diff NO MAN DIFF REQ, RBC 4.94, MCV 90.6, MCH 30.1, MCHC 33.2, RDW 15.5 H, MPV 8.5, Gran % 43.5, Lymphocytes % 46.2, Monocytes % 8.6, Eosinophils % 1.0, Basophils % 0.7, Absolute Granulocytes 6.3, Absolute Lymphocytes 6.7 H, Absolute Monocytes 1.2 H, Absolute Eosinophils 0.1, Absolute Basophils 0.1, Serum Alcohol 242.0 07/06/182025: Methadone Screen Cancelled, Barbiturate Screen Cancelled, Ur Phencyclidine Scrn Cancelled, Amphetamines Screen Cancelled, U Benzodiazepines Scrn Cancelled, Urine Cocaine Screen Cancelled, Urine Cannabis Screen Cancelled Hand-Off Endorsed To: Johann Ortiz MD Endorsed Time: 0700 Pending: consult, labs (Kuldeep Woodruff MD) Comments: Patient has been seen and evaluated by his clinician. Patient is stable for discharge at this time. A refill for his medications has been provided. (Johann Ortiz MD) Departure Departure Condition: Stable Clinical Impression Primary Impression: Alcohol intoxication delirium Secondary Impressions: Suicidal ideation Referrals: Patient Has No Primary Care Dr (PCP/Family) Departure Forms: Customer Survey General Discharge Information (Kuldeep Woodruff MD) Departure Disposition: HOME OR SELF CARE Additional Instructions: Follow-up as per the recommendations of the concession manager. Prescriptions: Current Visit Scripts Amlodipine Besylate (Norvasc) 1 TAB PO DAILY #30 TAB Diclofenac Sodium 1 TAB PO BID #60 TAB Gabapentin (Neurontin) 1 CAP PO TID #360 CAP 3 TABS BY MOUTH MORNING AND AFTERNOON AND 6 TABS BY MOUTH AT NIGHT Lisinopril 1 TAB PO DAILY #30 TAB Metformin HCl 1 TAB PO BID #60 TAB Trazodone HCl 2 TAB PO QPM #60 TAB (Johann Ortiz MD)
[2018-07-07] MEDS ORDERED: TRAZODONE HCL100 M1 PO (09:12)
[2018-07-07] MEDS ORDERED: NORVASC10 M1 PO (09:12)
[2018-07-07] MEDS ORDERED: DICLOFENAC SODI75 M2 PO (09:12)
[2018-07-07] MEDS ORDERED: LISINOPRIL20 M1 PO (09:12)
[2018-07-07] MEDS ORDERED: NEURONTIN300 M1 PO (09:12)
[2018-07-07] MEDS ORDERED: METFORMIN HCL500 M3 PO (09:12)
[2018-07-07 09:35] VITALS: BP 127/84
--- NOTE | 2018-07-07 10:51 | ED PSYCH CRISIS CONSULTATION ---
Crisis Consult Basic Assessment Date of Consult: 07/07/18 Responsible Person/Accompanied By: Self Insurance Authorization: Insurance #1: Insurance name: NICOLAS MENESES Phone number: Policy number: [id number] Group number: Authorization number: ED Provider: Patient's ED Provider: Kuldeep Woodruff MD Primary Care Physician: Patient's PCP: Patient Has No Primary Care Dr PCP's Phone Number: Chief Complaint: Psychiatric Related Complaint Patient's Quote: "I got drunk I didn't mean what I said" Present Illness: Pt is a 52 year old male brought into the ED from police station for positive SI and HI with no specific plan. PT came in intoxicated, etho was 242 @ 08:26pm and tox screen came back positive for cannibis. Pt states he drank a quart of vodka last night and did not mean what he said when he made the SI and HI statements. Pt reports he would like to be discharged because he needs to go to [place] in order to obtain his ID so he can start making his way down to [place]. Pt repoorts becoming increasingly agitated by his family and friends and that is why he wants to go to [place]. Pt reports he has been staying in a room in his friends [facility] in [place]. 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 Pt states he lost his sister to pancreatic cancer two weeks ago and is grieving. Pt reports he has cut people out of his life because they are "cheapsakes." He reports hos depression is a 5 on a scale of 0-10, 10 being the worst and his anxiety at a 10. Pt reports he has not been sleeping much and will stay up for more than 24 hours at a time. PT states he ran out of medications as well. Pt reports he needs his medications, Trazadone, Gabapentine and hypertension medications. Pt reports his knee pain has been managable. Pt is motivated and future oreinted to be discharged in order to get his ID. Pt is agreeable to discharge plan of going to [facility] walk in hours and is being discharged with refills of his medications. Patient's Address: [place] [address] Other Phone Number: Who Do You Live With? Patient/Self Family/Informants Interviewed: no family/collateral ID'd Allergies - Coded Allergies: NO KNOWN ALLERGIES (NONE 05/05/18) Current Medications - Scheduled Medications Amlodipine Besylate (Norvasc) 10 MG TABLET 1 TAB PO DAILY HIGH BLOOD PRESSURE #30 TAB Prescribed by Johann Ortiz MD on 07/07/18 Amlodipine Besylate (Norvasc) 10 MG TABLET 10 MG PO DAILY HYPERTENSION #30 TAB Prescribed by Maisha Brito MD on 06/01/18 Ciprofloxacin HCl (Cipro) 500 MG TABLET 500 MG PO Q12 INFECTION KNEE #3 TAB Prescribed by Maisha Brito MD on 06/01/18 Cyclobenzaprine HCl 10 MG TABLET 1 TAB PO Q8P PAIN OR SPASM #20 TAB Prescribed by Johann Ortiz MD on 06/08/18 Diclofenac Sodium 75 MG TABLET. 75 MG PO BID pain #60 TAB Prescribed by Manjit Cristina MD on 05/22/18 Diclofenac Sodium 75 MG TABLET.DR 1 TAB PO BID PAIN #60 TAB Prescribed by Johann Ortiz MD on 07/07/18 Duloxetine Hydrochloride (Cymbalta) 30 MG CAPSULE. 90 MG PO DAILY depression #30 CAP Prescribed by Manjit Cristina MD on 05/22/18 Duloxetine Hydrochloride (Cymbalta) 30 MG CAPSULE.DR 1 CAP PO DAILY DEPRESSION #30 CAP Prescribed by Johann Ortiz MD on 06/08/18 Gabapentin 300 MG CAPSULE 1,800 MG PO AT BEDTIME anxiety/pain #30 CAP Prescribed by Manjit Cristina MD on 05/22/18 Gabapentin 300 MG CAPSULE 900 MG PO 0800,1400 anxiety #30 CAP Prescribed by Manjit Cristina MD on 05/22/18 Gabapentin (Neurontin) 300 MG CAPSULE 1 CAP PO TID ANXIETY #360 CAP Prescribed by Johann Ortiz MD on 07/07/18 Lisinopril 20 MG TABLET 1 TAB PO DAILY HIGH BLOOD PRESSURE #30 TAB Prescribed by Johann Ortiz MD on 07/07/18 Lisinopril 20 MG TABLET 60 MG PO DAILY HYPERTENSION #30 TAB Prescribed by Maisha Brito MD on 06/01/18 Metformin HCl 500 MG TABLET 1 TAB PO BID DIABITIES #60 TAB Prescribed by Johann Ortiz MD on 07/07/18 Metformin Hydochloride (Glucophage) 500 MG TABLET 500 MG PO 0800,1700 DM #30 TAB Prescribed by Manjit Cristina MD on 05/22/18 Metoprolol Tartrate 50 MG TABLET 100 MG PO BID hypertension #10 TAB Prescribed by Manjit Cristina MD on 05/22/18 Trazodone HCl 50 MG TABLET 200 MG PO AT BEDTIME insomnia #30 TAB Prescribed by Manjit Cristina MD on 05/22/18 Trazodone HCl 150 MG TABLET 1 TAB PO QPM DEPRESSION #30 TAB Prescribed by Johann Ortiz MD on 06/08/18 Trazodone HCl 100 MG TABLET 2 TAB PO QPM INSOMNIA #60 TAB Prescribed by Johann Ortiz MD on 07/07/18 Scheduled PRN Medications Hydroxyzine Hydrochloride (Atarax) 25 MG TAB 25 MG PO 4 TIMES/DAY PRN ANXIETY/ AGITATION/INSOMNIA #20 TAB Prescribed by Maisha Brito MD on 06/01/18 Oxycodone HCl 10 MG TABLET 20 MG PO Q6-PRN PRN PAIN SCALE 4-6 (MODERATE) #16 TAB Prescribed by Maisha Brito MD on 06/01/18 Laboratory Results: Laboratory Tests 07/07/18 0816: Urine Opiates Screen < 100, Methadone Screen 67, Barbiturate Screen < 60, Ur Phencyclidine Scrn < 6.00, Amphetamines Screen < 100, U Benzodiazepines Scrn < 85, Urine Cocaine Screen < 50, Urine Cannabis Screen > 80.00 H 07/06/184: Anion Gap 16, Estimated GFR > 60, BUN/Creatinine Ratio 17.1, Glucose 205 H, Calcium 9.5, Total Bilirubin 0.7, AST 218 H, ALT 141 H, Alkaline Phosphatase 104, Total Protein 8.5 H, Albumin 4.2, Globulin 4.3 H, Albumin/Globulin Ratio 1.0 L, CBC w Diff NO MAN DIFF REQ, RBC 4.94, MCV 90.6, MCH 30.1, MCHC 33.2, RDW 15.5 H, MPV 8.5, Gran % 43.5, Lymphocytes % 46.2, Monocytes % 8.6, Eosinophils % 1.0, Basophils % 0.7, Absolute Granulocytes 6.3, Absolute Lymphocytes 6.7 H, Absolute Monocytes 1.2 H, Absolute Eosinophils 0.1, Absolute Basophils 0.1, Serum Alcohol 242.0 07/06/182025: Methadone Screen Cancelled, Barbiturate Screen Cancelled, Ur Phencyclidine Scrn Cancelled, Amphetamines Screen Cancelled, U Benzodiazepines Scrn Cancelled, Urine Cocaine Screen Cancelled, Urine Cannabis Screen Cancelled Past History Past Medical History Neurological: NONE EENT: NONE Cardiovascular: hypertension Respiratory: asthma, bronchitis Gastrointestinal: alcoholic hepatitis Hepatic: cirrhosis, hepatitis C Renal: NONE Musculoskeletal: falls Psychiatric: alcohol dependence, Cannabis use disorder, amphetamine use disorder (meth) Endocrine: DIABETIC Blood Disorders: NONE Cancer(s): NONE 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 Physical Limitations (Interventions): Pt has an injured knee and shoulder. Psychiatric Treatment History Psych Treatment Psychiatric Treatment Yes Inpatient Treatment Yes Outpatient Treatment No Location of Treatment [facility] 2018 Reason for Treatment depression and etho Dates of Treatment 2018 Response to Treatment completed Diagnosis by History: Unspecified depressive d/o alcohol use disorder, severe cannabis use disorder, moderate Amphetamine use disorder, moderate Chart history of Schizophrenia and Bipolar Disorder. Antisocial personality disorder Substance Use/Abuse History Drug Use/Abuse 1 Substances Used/Abused Yes Substance Used/Abused Alcohol Last Used 07/06/18 How much used/taken quart of vodka How often everyday For how long years Route of use oral Drug Use/Abuse 2 Substances Used/Abused Yes Substance Used/Abused Marijuana Last Used 07/06/18 Substance Abuse Treatment Substance Abuse Treatment Past Substance Abuse TX No Inpatient Treatment No Outpatient Treatment No Current Mental Status Mental Status Orientation: Person, Place, Situation Affect: WNL Speech: Loud, WNL Neuro-vegetative: Appetite Decreased, Concentration Poor, Loss of Interest, Sleep Disturbance Appearance Appearance- Dress/Hygiene: Pt is dressed in just the pants of the hospital scrubs, hygiene is fair and but disheveled. Behaviors Thought Process: WNL Thought Content: WNL Memory: WNL Insight: Fair SI/HI Risk Assessment Past Suicidal Ideation/Attempts Yes Current Suicidal Ideation/Att No Past Homicidal Ideation/Att: Yes Current Homicidal Ideation/Attempts No Degree of Intent: Self Destructive/No Danger To: Self Gravely Disabled: Lack of Insight, Poor Impulse Control, Poor Judgment Risk Factors: high anxiety/distress, SA/MH hospitalized, substance abuse, isolate/no social support, poor impulse control, lack of outcome concern, lives alone, male, limited support Lethality Ratin PTSD Checklist PTSD Done? patient declined ED Management Sitter: Yes Restraints: No DSM5/PS Stressors/Medical Prob Diagnosis' (DSM 5, Stressors, Medical): F32.9 Unspecified Depression F41.9 Unspecified Anxiety F10.20 Alcohol Use D/O Severe F10.20 Cannibis Use D/O Knee pain Homeless Current GAF: 30 Departure Disposition Psych Medical Clearance Date: 07/07/18 Medically Cleared at: 819 Time Started: 819 Time Ended: 839 Psychiatrist Consulted: Dr. Manjit Cristina Date Disposition Established: 07/07/18 Time Disposition Established: 839 [facility] for Dis[facility] - [facility] Facility: [facility] Follow-up Appt Date: 07/10/18 Rationale for Disposition: Pt does not meet criteria for inpatient hospitialization. Pt will be discharged with refills of his medications and [facility] walk in hours. PT denies SI, HI, AH, VH at this time. PT has no acces to guns and will be staying in a friends room above the garage. Pt is movitated and future oriented to get his ID and start heading down to [place] on his bike. Referrals Patient Has No Primary Care Dr (PCP/Family)
== END 2018-07-07 09:36 ==
LOC: ERH 20:05
PROVIDERS: Emergency Medicine
DX: F10.121 Alcohol abuse with intoxication delirium (principal); R45.851 Suicidal ideations
CPT/HCPCS: 80307; 96372; G0463; G0480; J1200; J1630